=== PATIENT | female | born 1960 | race Caucasian/White ===

== ENCOUNTER 2019-07-01 14:08 | Inpatient (IN) | payer BC, MEDICARE ==
--- NOTE | 2019-07-01 14:50 | RAD ---
XR Chest 1 View History: Central line placement Comparison: None. Findings: Right-sided central venous catheter sits at the inferior SVC in good position. Dense bilate ral opacities throughout the lungs. Endotracheal tube tip at level of clavicles. Enteric tube tip in good position. Heart size mildly enlarged. Age-indeterminate left-sided rib fractures. Old right-sided rib fractures . Impression: 1. Satisfactory position of lines and tubes. 2. Abnormal parenchymal opacities throughout the lungs concerning for multifocal bronchopneumonia. Co ntinued follow-up recommended to evaluate for change.
[2019-07-01 14:55] LABS: Hemoglobin 8.9 g/dL (12.0-16.0); Mean Corpuscular HGB CONC 31.2 g/dL (32.0-36.0); Mean Corpuscular Hemoglobin 29.1 pg (27.0-31.0); Mean Corpuscular Volume 93.3 fL (78.0-98.0); Mean Platelet Volume 10.3 fL (7.4-10.4); Platelet Count 131 thou/uL (130-400); RBC Distribution Width 16.9 % (11.5-14.5); Red Blood Cell (RBC) Count 3.06 mill/uL (4.20-5.40); White Blood Cell (WBC) Count 45.4 thou/uL (4.8-10.8)
[2019-07-01] MEDS ORDERED: Cefepime 2 GM VIAL ONE (15:10)
[2019-07-01] MEDS ORDERED: Pantoprazole 40 MG VIAL ONE (15:10)
[2019-07-01 15:12] LABS: Anisocytosis SLIGHT = 6-15 cells (100X) (0-5/hpf); Band 19 % (5-11); Burr Cells SLIGHT = 2-5 cells (100X) (0-1/hpf); Eosinophils 1 % (0-10); Lymphocytes 4 % (21-51); MDiff Complete? YES; Metamyelocyte 4 % (0-0); Monocytes 2 % (0-10); Myelocyte 4 % (0-0); Neutrophil 66 % (42-75); Nucleated RBC 3 % (0); Ovalocytes SLIGHT = 2-5 cells (100X) (0-1/hpf); Platelet Morphology Comment Appears Adequate; Poikilocytosis SLIGHT = 6-15 cells (100X) (0-5/hpf); Polychromasia MODERATE = 3-4 cells (100X) (0-2/hpf); Reflex for Review?? YES; Schistocytes SLIGHT = 2-5 cells (100X) (0-1/hpf); Tear Drops SLIGHT = 2-5 cells (100X) (0-1/hpf); Vacuoles SLIGHT
[2019-07-01 15:17] LABS: Actual Bicarbonate (HCO3a) 9.6 mEq/L (22-28); Analyzer IN Cardio ER; Base Excess (BEa) -19.2 mEq/L (-2.0 to +3.0); CO2 Tension 33.3 mmHg (35.0-45.0); Calcium, Ionized 1.04 mmol/L (1.12-1.30); Carboxyhemoglobin (COHb) 0.1 gm% (0.0-3.0); O2 Tension (PaO2) 406.9 mmHg (80.0-100.0); Potassium - ABG Lab 4.12 mmol/L (3.70-5.30)
[2019-07-01 15:18] LABS: ALT (SGPT) 185 U/L (8-55); AST (SGOT) 465 U/L (5-34); Alkaline Phosphatase 122 U/L (40-110); BUN (Urea Nitrogen) 43 mg/dL (9.8-20.1); Bilirubin, Total 0.3 mg/dL (0.2-1.2); CK (CPK) 265 U/L (29-168); Calc. Creatinine Clearance 0 mL/min (70-130); Calcium 6.5 mg/dL (7.8-10.44); Estimated GFR-MDRD 29; Globulin 2.5 g/dL (2.4-3.5); Glucose 131 mg/dL (70-105); Potassium 4.4 mmol/L (3.5-5.1); Protein, Total 4.5 g/dL (6.0-8.3); Sodium 150 mmol/L (136-145)
[2019-07-01 15:18] LABS: pH, Arterial 7.08 (7.35-7.45)
[2019-07-01 15:20] LABS: Puncture Site LRA
[2019-07-01 15:21] LABS: ALV-art Gradient 264.475 (0-20)
[2019-07-01 15:22] LABS: Carbon Dioxide Less than 8 mmol/L (22-29); Chloride 128 mmol/L (98-107)
[2019-07-01] MEDS ORDERED: Pantoprazole 80 MG, Admixture Fee 1 EACH in Sodium Chloride 0.9% 100 ML IVPB SCH (15:30)
[2019-07-01 15:40] LABS: CKMB 3.7 ng/mL (0-6.6)
[2019-07-01] MEDS ORDERED: Propofol 1,000 MG/100 ML VIAL IV ONE (15:40)
[2019-07-01 15:50] LABS: Prothrombin Time 38.9 SEC (12.0-14.7)
[2019-07-01 15:51] LABS: PTT 60.1 SEC (22.9-36.1)
[2019-07-01] MEDS ORDERED: HUMAN PROTHROMBIN COMPLX IV SCH (16:15)
[2019-07-01] MEDS ORDERED: ADMIXTURE FEE IV SCH (16:15)
--- NOTE | 2019-07-01 16:23 | CT ---
CT OF THE CHEST, ABDOMEN AND PELVIS WITHOUT IV CONTRAST INDICATION: Dyspnea COMPARISON: None FINDINGS: CHEST: Lungs: There are patchy areas of peripheral airspace consolidation is seen within the right lung apex and left lower lobe suspicious for pneumonia. This is superimposed on areas of peripheral fibrosis and COPD type change. There are peripheral areas of interstitial and airspace opacities seen within t he lingula and right lower lobe which may reflect a component of bronchopneumonia. Pleural space: No effusion. Mediastinum: Mild ectasia of the ascending aorta measuring 4 cm. The patient is intubated with gastri c catheter placement. Axilla: No pathologically enlarged lymph nodes. ABDOMEN: Lung bases: Clear Liver: No focal lesion. Gallbladder: Surgically absent Pancreas: Normal. Adrenal glands: Normal. Spleen: Normal. Kidneys and ureters: Normal. No hydronephrosis. Vasculature: Normal. Lymph nodes:No lymphadenopathy. Free fluid in abdomen:No free fluid is evident. PELVIS: Small and large bowel: There is postsurgical change of right hemicolectomy and ileocolonic anastomosi s in the right upper quadrant. There is fluid distention of the colon. Appendix:Surgically absent Bladder: Decompressed with a Crorea catheter Rectal and perirectal soft tissues:Normal. Reproductive structures: Surgically absent Free fluid in pelvis: No free fluid is evident. Lymphadenopathy pelvis: No lymphadenopathy is evident. Osseous structures: There is reconstructed total hip prosthesis on the right. There are chronic appea ring wedge compression abnormalities of T12 and L1. There is healed deformity involving the proximal sternal body. There is scattered degenerative and osteoarthritic changes. Soft tissues:Normal. IMPRESSION: 1. Findings most suspicious for multifocal pneumonia. 2. Fluid distention of the colon is suspicious for either a diarrheal state or colitis. 3. Chronic findings as above
[2019-07-01] MEDS ORDERED: Norepinephrine 8 MG/0.9% NS 250 ML ONE (16:25)
[2019-07-01] MEDS ORDERED: Ondansetron PF 4 MG/2 ML Vial IVP PRN (16:36)
[2019-07-01] MEDS ORDERED: Acetaminophen 325 MG TAB PER TUBE PRN (16:36)
[2019-07-01] MEDS ORDERED: Vancomycin HCl 1 GM in Sodium Chloride 0.9% 250 ML 250 ML IVPB SCH (17:00)
[2019-07-01] MEDS ORDERED: Norepinephrine 8 MG/0.9% NS 250 ML IVPB SCH (17:00)
[2019-07-01 17:03] LABS: Fibrinogen 274 mg/dL (253-463)
[2019-07-01 17:03] LABS: Hemoglobin 7.7 g/dL (12.0-16.0); Mean Corpuscular HGB CONC 32.3 g/dL (32.0-36.0); Mean Corpuscular Volume 89.8 fL (78.0-98.0); Mean Platelet Volume 7.6 fL (7.4-10.4); Platelet Count 120 thou/uL (130-400); RBC Distribution Width 16.9 % (11.5-14.5); Red Blood Cell (RBC) Count 2.67 mill/uL (4.20-5.40); White Blood Cell (WBC) Count 48.8 thou/uL (4.8-10.8)
[2019-07-01 17:20] LABS: FSP-Qualitative ABNORMAL (Normal); FSP-Semiquantitative >=40 & <80 mcg/mL (Less than 5)
[2019-07-01 17:22] LABS: Anion Gap 15 mmol/L (10-20); BUN (Urea Nitrogen) 44 mg/dL (9.8-20.1); Calc. Creatinine Clearance 0 mL/min (70-130); Calcium 6.2 mg/dL (7.8-10.44); Carbon Dioxide 12 mmol/L (22-29); Estimated GFR-MDRD 28; Glucose 188 mg/dL (70-105); Potassium 3.9 mmol/L (3.5-5.1); Sodium 150 mmol/L (136-145)
[2019-07-01 17:27] LABS: Anisocytosis SLIGHT = 6-15 cells (100X) (0-5/hpf); Band 14 % (5-11); Burr Cells SLIGHT = 2-5 cells (100X) (0-1/hpf); Lymphocytes 6 % (21-51); MDiff Complete? YES; Metamyelocyte 6 % (0-0); Monocytes 2 % (0-10); Myelocyte 4 % (0-0); Neutrophil 68 % (42-75); Nucleated RBC 1 % (0); Ovalocytes SLIGHT = 2-5 cells (100X) (0-1/hpf); Platelet Morphology Comment Appears Decreased; Poikilocytosis SLIGHT = 6-15 cells (100X) (0-5/hpf); Polychromasia MODERATE = 3-4 cells (100X) (0-2/hpf); Schistocytes SLIGHT = 2-5 cells (100X) (0-1/hpf); Troponin I 0.101 ng/mL (< 0.028); Vacuoles SLIGHT
[2019-07-01 17:36] LABS: Chloride 127 mmol/L (98-107)
[2019-07-01] MEDS ORDERED: Sodium Bicarbonate 100 MEQ in Dextrose 5% in Water 1,000 ML IV SCH (17:45)
[2019-07-01] MEDS ORDERED: DISCONTINUE PREVIOUS NARCOTIC PAIN MEDICATIONS AND BENZODIAZEPINES FS SCH (17:49)
[2019-07-01] MEDS ORDERED: Fentanyl BOLUS 250 ML IVPB PRN (17:49)
[2019-07-01] MEDS ORDERED: fentaNYL Citrate/PF 2,000 MCG in Sodium Chloride 0.9% 60 ML IV SCH (17:49)
[2019-07-01] MEDS ORDERED: Propofol BOLUS 1,000 MG/100 ML VIAL IV PRN (17:49)
[2019-07-01] MEDS ORDERED: Aztreonam 1 GM in Sodium Chloride 0.9% 100 ML IVPB SCH (18:00)
--- NOTE | 2019-07-01 18:32 | PDOC.HOSPP ---
- Subjective Encounter Date: 07/01/19 - Objective Vital Signs & Weight: Vital Signs (12 hours) Pulse BP 07/01/19 17:42 102 H 118/79 Result Diagrams: 07/01/19 16:52 07/01/19 16:52 Hosp A/P - Plan H&P dictated Case Discussed with Dr Devonte Renteria in detail and he reviewed labs and clinical data in detail , Pt s/p K centra transfusion given by ED and He Recommended to transfuse 2 units FFP and recomended to continue monitor h/h and transfuse to maintain Hg and also recommended to correct acid base balance and maintain hydrodynamic stability
[2019-07-01] MEDS ORDERED: Sodium Bicarb 50 MEQ/50 ML VIAL ONE (18:38)
[2019-07-01 18:54] LABS: Actual Bicarbonate (HCO3a) 16.9 mEq/L (22-28); Base Excess (BEa) -8.6 mEq/L (-2.0 to +3.0); CO2 Tension 34.6 mmHg (35.0-45.0); Calcium, Ionized 0.92 mmol/L (1.12-1.30); Carboxyhemoglobin (COHb) 0.5 gm% (0.0-3.0); Hemoglobin (Hb) 8.1 g/dL (12.0-16.0); O2 Tension (PaO2) 64.7 mmHg (80.0-100.0); Potassium - ABG Lab 3.55 mmol/L (3.70-5.30); pH, Arterial 7.31 (7.35-7.45)
[2019-07-01] MEDS ORDERED: Phytonadione 10 MG/ML AMP SLOW IVP SCH (19:00)
[2019-07-01] MEDS ORDERED: Sodium Bicarb 50 MEQ/50 ML VIAL IVP SCH (19:00)
[2019-07-01 19:16] LABS: Puncture Site R BRACHIAL
[2019-07-01 19:40] LABS: Hemoglobin 7.8 g/dL (12.0-16.0); Mean Corpuscular HGB CONC 32.6 g/dL (32.0-36.0); Mean Corpuscular Volume 88.7 fL (78.0-98.0); Mean Platelet Volume 9.8 fL (7.4-10.4); Platelet Count 143 thou/uL (130-400); RBC Distribution Width 15.8 % (11.5-14.5); Red Blood Cell (RBC) Count 2.69 mill/uL (4.20-5.40)
[2019-07-01] MEDS: Sodium Bicarbonate 100 MEQ in Dextrose 5% in Water 1,000 ML IV SCH (19:45)
[2019-07-01 19:47] LABS: Fibrinogen 227 mg/dL (253-463)
[2019-07-01 19:48] LABS: INR-International Normal Ratio 2.9; PTT 50.4 SEC (22.9-36.1); Prothrombin Time 29.9 SEC (12.0-14.7)
[2019-07-01 19:48] LABS: INR-International Normal Ratio 2.9; Prothrombin Time 30.1 SEC (12.0-14.7)
[2019-07-01 19:51] LABS: Band 5 % (5-11); Lymphocytes 5 % (21-51); MDiff Complete? YES; Metamyelocyte 2 % (0-0); Neutrophil 88 % (42-75); Platelet Morphology Comment Appears Adequate
[2019-07-01 19:53] LABS: Lactic Acid 3.1 mmol/L (0.5-2.2)
[2019-07-01 19:55] LABS: D-Dimer Test 10.71 *mcg/mL (0.27-0.43)
[2019-07-01 20:03] LABS: ALT (SGPT) 170 U/L (8-55); AST (SGOT) 602 U/L (5-34); Albumin 2.1 g/dL (3.5-5.0); Alkaline Phosphatase 90 U/L (40-110); Anion Gap 15 mmol/L (10-20); BUN (Urea Nitrogen) 45 mg/dL (9.8-20.1); Bilirubin, Total 0.7 mg/dL (0.2-1.2); Calc. Creatinine Clearance 0 mL/min (70-130); Calcium 5.6 mg/dL (7.8-10.44); Carbon Dioxide 17 mmol/L (22-29); Chloride 126 mmol/L (98-107); Estimated GFR-MDRD 26; FSP-Qualitative ABNORMAL (Normal); FSP-Semiquantitative >=40 & <80 mcg/mL (Less than 5); Globulin 2.2 g/dL (2.4-3.5); Glucose 202 mg/dL (70-105); Potassium 3.4 mmol/L (3.5-5.1); Protein, Total 4.3 g/dL (6.0-8.3); Sodium 155 mmol/L (136-145)
[2019-07-01 20:04] LABS: Platelet Count 143 thou/uL (130-400)
[2019-07-01] MEDS: Linezolid 600 MG in Premix Bag 1 BAG IVPB SCH (20:11)
[2019-07-01] MEDS ORDERED: Calcium Chloride 1 GM/10 ML Abboject SYRINGE IVP SCH (21:15)
--- NOTE | 2019-07-01 21:22 | HP ---
PRESENTING COMPLAINT: Status post cardiac arrest, GI bleed. HISTORY OF PRESENT ILLNESS: The patient with a past medical history of Crohn disease on Humira, history of recently diagnosed arrhythmia on Eliquis, hypertension, multiple hip surgery, status post hip replacement, recent cholecystectomy, recently diagnosed respiratory failure on oxygen at home. As per , the patient today had a large bloody bowel movements with clots and then she felt dizzy and lightheaded and was not feeling well and she had collapse and the EMS was called. started [id number] breathing and upon EMS arrival, CPR was started and the patient was approximately as per on CPR for 20 minutes. The patient was intubated and was brought to [facility]. She was found to have anemia with a hemoglobin of 4.2. The patient given 2 units of PRBC. The patient was transferred to [facility] where in the emergency room the patient also had bloody bowel movement as per nursing staff. The patient having bleeding from her central line site area, also through her suction. The patient orally intubated and had dilated pupil. The patient was hypotensive on the scene and given PRBC transfusion. Currently, the patient's blood pressure is 88/59 and temperature 92. The patient's INR is 4.4. ED physician consulted geoint analyst, rate marker, and folder operator for severe acidosis and acute renal failure. The patient being admitted to ICU. Pupils dilated, non reacting to light; however, she has spontaneous movements of her extremity. SYSTEMIC REVIEW: As mentioned above. PAST MEDICAL HISTORY: As mentioned above. PAST SURGICAL HISTORY: 1. History of shoulder surgery, history of recent cholecystectomy on June 22, 2019. 2. Multiple hip surgeries in the past, status post right hip replacement. 3. Right femur surgery. 4. Right hand surgery. SOCIAL HISTORY: The patient has been heavy smoker in the past and quit 1 month ago. Denies alcohol abuse, drug abuse. FAMILY HISTORY: Reviewed and noncontributory. HOME MEDICATIONS: The patient has been on Eliquis and other medications. Her family does not know the exact medications at present. PHYSICAL EXAMINATION: VITAL SIGNS: 88/59, temperature 92, respiration 18, oxygen saturation 94%. GENERAL: The patient orally intubated. HEENT: Pupils dilated, very sluggish reaction to light. Oral mucosa dry. NECK: Supple. No JVD. No lymphadenopathy. CHEST: Decreased air entry bilateral lower lung daly. ABDOMEN: Mildly distended. Bowel sounds audible. EXTREMITIES: Negative edema of feet. LABORATORY DATA: CBC unremarkable except white blood cell 45.4, hemoglobin 8.9, platelet count 131. INR 4.0, PT 38.9, PTT 62.1. ABGs; 7.08, 33, 406. CMP unremarkable except sodium 150, potassium 4.4, chloride 128, creatinine 1.79, BUN 43, glucose 131, lactic acid 9.1, ALT 465, ALT 185, alkaline phosphatase 122. CPK 265. Troponin 0.065. EKG; normal sinus rhythm, T-wave inversion virgin in lateral leads. Chest x-ray; satisfactory position of lines and tubes, abnormal parenchymal opacities throughout the lungs concerning for multifocal bronchopneumonia. Chest, abdomen, and pelvis CT findings suspicious for multifocal pneumonia. Fluid distention of the colon is suspicious for either a diarrheal state or colitis. Chronic findings as above. IMPRESSION: 1. Status post cardiac arrest with CPR approximately 20 minutes at home after the patient had bloody bowel movement, status post intubation. Continue ICU care. Continue vent management per ICU team. 2. Acute hypoxemic respiratory failure, being placed on oxygen recently after cholecystectomy and the patient currently has pneumonia. We will continue broad-spectrum antibiotics. Possible aspiration pneumonia. Follow up blood cultures, sputum culture. 3. Acute gastrointestinal bleed. The patient had large bloody bowel movement this morning at home and also had one bloody bowel movement in the emergency room. The patient's hemoglobin was 4 at [facility] where she was given 2 units of PRBC. GI, Dr. Mcdonald has been consulted. We will continue to monitor H and H q.4 hours hourly. The patient will continue Protonix drip. Nursing staff also noticed blood from central line site and from an ET tube. The patient has a history of Crohn disease, on Humira. Follow up with GI if steroids needs to be started here. 4. Coagulopathy. The patient has been on Eliquis at home. INR 4. The patient currently getting Kcentra In the emergency room also getting FFP and platelet transfusion. Discussed with lead simulation modeling engineer certified hearing instrument dispenser Dr. Devonte Renteria and he reviewed labs and clinical data in detail and recomended to give 2 units FFP and correction of acid base balance and icu monitoring and stabilizations of vitals 5. Shock, possible gastrointestinal related blood loss and possible component of sepsis. We will continue fluid resuscitation and currently started Levophed in the emergency room as blood pressure was 88 systolic. 6. Severe lactic acidosis, most likely secondary to shock and gastrointestinal bleed. Nephrology has been consulted. 7. History of hypertension. We will hold antihypertensive medication at present. 8. Acute kidney injury, most likely secondary to shock and hypotension related. 9. Deranged LFTs, most likely shock liver. We will continue to trend LFTs. 10. Positive troponin, most likely related to CPR related. We will continue to monitor troponins. EKG without any significant changes. 11. Hyponatremia, most likely dehydration related. We will continue fluids after Nephrology evaluation. 12. Prognosis is guarded. Updated the patient's and son, who are present at bedside. Advance directive discussed with and son. The patient is currently full code. Job ID: [id number] [id number]
--- NOTE | 2019-07-01 22:15 | CON ---
DATE OF CONSULTATION: 07/01/2019 SERVICE: Nephrology. REASON FOR CONSULTATION: Acute kidney injury. REQUESTING PHYSICIAN: Dr. Erik Khalil. HISTORY OF PRESENT ILLNESS: A 59-year-old female with recent laparoscopic cholecystectomy, admitted from [facility] for further evaluation, and treatment of PEA arrest. The patient reportedly had enlarged bloody stool, following this she had syncopal episodes, and was unresponsive. When EMS called, arrived at the place, the patient was in PEA arrest, and then started CPR with return of spontaneous circulation after about 20 minutes. The patient was taken to the [place] ER, where the patient was intubated. She also was treated with IV fluid as well as blood transfusion en route to the hospital. The patient was also found to have hypernatremia as well as acute kidney injury and abnormal liver enzymes and coagulopathy. Impression of possible DIC was made and patient received Kcentra in the ER. She also received FFP and plasma platelets. She is still unresponsive, mechanically ventilated via ET tube. PAST MEDICAL HISTORY: Unknown due to the patient's condition, and there is no family member around. PAST SURGICAL HISTORY: Laparoscopic cholecystectomy. FAMILY HISTORY: Unable to perform due to the patient's condition. SOCIAL HISTORY: Unable to perform. ALLERGIES: CEPHALOSPORIN. PRIOR TO HOSPITAL, MEDICATION UNKNOWN. PHYSICAL EXAMINATION: VITAL SIGNS: Current vitals showed pulse 125, respiratory rate 32, SpO2 100% on ventilator, and blood pressure is 130/87. GENERAL: Middle-aged female, in no obvious distress. The patient is unresponsive. HEENT: Normocephalic and atraumatic. ET tube and NG tube noted. Some blood smell is noted on the nostrils as well as around the mouth. NECK: No JVD appreciated. CARDIOVASCULAR: Regular rhythm, but tachycardic. RESPIRATORY: Fair air entry with the ventilator transmitted breath sounds with scattered crackles. The patient is tachypneic. GI: Full, soft, nondistended. Scars of recent laparoscopic cholecystectomy noted. EXTREMITIES: Grossly normal looking, atraumatic with no obvious edema. UROGENITAL: Correa catheter is in place with no urine. CLINICAL EDUCATION ASSISTANT: The patient is somnolent. LABORATORY DATA: CBC on presentation showed a WBC count of 45.4, hemoglobin of 8.9, and platelet of 131. DIC panel done on presentation showed PT 38.9, INR 4.0, PTT 60.1, fibrinogen 274 with fibrin degraded product abnormally high, and D-dimer 13.5. Arterial blood gas done on presentation showed pH of 7.08, pCO2 of 33.3, and PO2 of 406. CMP on presentation showed sodium 150, potassium 4.4, chloride 126, CO2 less than 8, BUN 43, creatinine 1.79, glucose 133, calcium 6.5, total bilirubin 0.3, AST 465, ALT 185, and alkaline phosphatase 122. Total bilirubin 4.5, albumin 2.0, globulin 2.5. CK-MB showed troponin 0.065 and CK-MB 3.7. DIAGNOSTIC STUDIES: CT scan of the abdomen and pelvis without IV contrast showed findings suggestive of multifocal pneumonia. Fluid distention of the colon is suspicious for either a diarrhea state or colitis. ASSESSMENT: 1. Acute kidney injury. 2. Shock due to diarrhea illness as well as acute gastrointestinal bleeding/hemorrhagic shock. 3. Hypernatremia. 4. Hyperchloremic acidosis. 5. Lactic acidosis. 6. Acute anemia. 7. Acute decrease in hemoglobin. 8. Presumed DIC. 9. Diarrhea illness. 10. Severe metabolic acidosis. 11. Hypocalcemia. PLAN: 1. Fluid resuscitation with IV fluid and blood products to continue. 2. We will start the patient on bicarb infusion with only 100 mEq of sodium bicarbonate to 1 L of D5 to provide additional free water flushes given hypernatremia. 3. We will type and crossmatch further 4 units of packed red blood cells. 4. We will monitor hemoglobin and hematocrit. 5. We will monitor urine output. 6. Optimization of hemodynamics is recommended. 7. Further treatment as per GI and real estate specialist. We will recheck renal function and electrolytes as well as liver function test in the morning. Job ID: [id number]
[2019-07-01] MEDS: Meropenem 500 MG in Sodium Chloride 0.9% 100 ML IVPB SCH (22:42)
[2019-07-01] MEDS: Hydrocortisone Sod Succ/PF 100 mg/2 ml Vial IVP SCH (22:46)
[2019-07-01] MEDS: Lorazepam 2 MG/ML VIAL SLOW IVP PRN (22:47)
[2019-07-01 23:37] LABS: Anion Gap 14 mmol/L (10-20); BUN (Urea Nitrogen) 44 mg/dL (9.8-20.1); Calc. Creatinine Clearance 31 mL/min (70-130); Calcium 6.4 mg/dL (7.8-10.44); Carbon Dioxide 16 mmol/L (22-29); Estimated GFR-MDRD 23; Glucose 141 mg/dL (70-105); Sodium 153 mmol/L (136-145)
[2019-07-01 23:43] LABS: Chloride 126 mmol/L (98-107)
[2019-07-01 23:44] LABS: Troponin I 0.203 ng/mL (< 0.028)
[2019-07-02] MEDS ORDERED: Calcium Gluconate 100 MG/ML 10 ML IVPB SCH (00:45)
[2019-07-02] MEDS ORDERED: Potassium Chloride 40 MEQ in Premix Bag 1 BAG IVPB SCH ×2 (00:45→05:30)
[2019-07-02 00:47] LABS: Actual Bicarbonate (HCO3a) 16.6 mEq/L (22-28); Base Excess (BEa) -6.4 mEq/L (-2.0 to +3.0); Calcium, Ionized 0.93 mmol/L (1.12-1.30); Hemoglobin (Hb) 7.8 g/dL (12.0-16.0); O2 Tension (PaO2) 98.4 mmHg (80.0-100.0); Potassium - ABG Lab 2.86 mmol/L (3.70-5.30); pH, Arterial 7.45 (7.35-7.45)
[2019-07-02 00:48] LABS: CO2 Tension 24.4 mmHg (35.0-45.0)
[2019-07-02 00:51] LABS: Puncture Site R BRACHIAL
[2019-07-02] MEDS ORDERED: Calcium Gluconate 4.6 MEQ in Sodium Chloride 0.9% 100 ML IVPB SCH (01:00)
[2019-07-02 01:08] LABS: Band 8 % (5-11); Hemoglobin 7.7 g/dL (12.0-16.0); Lymphocytes 3 % (21-51); MDiff Complete? YES; Mean Corpuscular HGB CONC 33.6 g/dL (32.0-36.0); Mean Corpuscular Hemoglobin 29.4 pg (27.0-31.0); Mean Corpuscular Volume 87.4 fL (78.0-98.0); Mean Platelet Volume 10.8 fL (7.4-10.4); Metamyelocyte 3 % (0-0); Monocytes 2 % (0-10); Neutrophil 84 % (42-75); Nucleated RBC 1 % (0); Platelet Count 89 thou/uL (130-400); Platelet Morphology Comment Appears Decreased; RBC Distribution Width 15.1 % (11.5-14.5); Red Blood Cell (RBC) Count 2.63 mill/uL (4.20-5.40); White Blood Cell (WBC) Count 35.5 thou/uL (4.8-10.8)
[2019-07-02] MEDS: Morphine 2 MG/ML SYRINGE SLOW IVP PRN (01:13)
[2019-07-02] MEDS: Lorazepam 2 MG/ML VIAL SLOW IVP PRN (03:08)
[2019-07-02] MEDS: Propofol 1,000 MG/100 ML VIAL IV PRN ×3 (03:22→19:05)
[2019-07-02 04:34] LABS: INR-International Normal Ratio 2.2; PTT 43.2 SEC (22.9-36.1); Prothrombin Time 23.9 SEC (12.0-14.7)
[2019-07-02 04:58] LABS: Anion Gap 13 mmol/L (10-20); BUN (Urea Nitrogen) 46 mg/dL (9.8-20.1); Band 7 % (5-11); Calc. Creatinine Clearance 27 mL/min (70-130); Calcium 6.1 mg/dL (7.8-10.44); Carbon Dioxide 17 mmol/L (22-29); Estimated GFR-MDRD 19; Glucose 126 mg/dL (70-105); Hemoglobin 6.7 g/dL (12.0-16.0); Lymphocytes 4 % (21-51); MDiff Complete? YES; Mean Corpuscular HGB CONC 34.2 g/dL (32.0-36.0); Mean Corpuscular Hemoglobin 29.6 pg (27.0-31.0); Mean Corpuscular Volume 86.7 fL (78.0-98.0); Mean Platelet Volume 10.6 fL (7.4-10.4); Monocytes 5 % (0-10); Neutrophil 83 % (42-75); Nucleated RBC 1 % (0); Platelet Count 73 thou/uL (130-400); Platelet Morphology Comment Appears Decreased; Potassium 3.2 mmol/L (3.5-5.1); RBC Distribution Width 15.1 % (11.5-14.5); RBC Morphology Normal; Reactive Lymphocytes 1 % (0-10); Red Blood Cell (RBC) Count 2.27 mill/uL (4.20-5.40); Sodium 153 mmol/L (136-145); White Blood Cell (WBC) Count 31.2 thou/uL (4.8-10.8)
[2019-07-02 05:07] LABS: Chloride 126 mmol/L (98-107)
[2019-07-02] MEDS: Meropenem 500 MG in Sodium Chloride 0.9% 100 ML IVPB SCH ×3 (05:20→22:16)
[2019-07-02] MEDS: Sodium Bicarbonate 100 MEQ in Dextrose 5% in Water 1,000 ML IV SCH (05:20)
[2019-07-02] MEDS: Hydrocortisone Sod Succ/PF 100 mg/2 ml Vial IVP SCH ×4 (05:20→23:33)
[2019-07-02 05:24] LABS: ALT (SGPT) 141 U/L (8-55); AST (SGOT) 509 U/L (5-34); Albumin 2.2 g/dL (3.5-5.0); Alkaline Phosphatase 71 U/L (40-110); Anion Gap 13 mmol/L (10-20); BUN (Urea Nitrogen) 46 mg/dL (9.8-20.1); Calc. Creatinine Clearance 26 mL/min (70-130); Calcium 6.2 mg/dL (7.8-10.44); Carbon Dioxide 17 mmol/L (22-29); Estimated GFR-MDRD 19; Globulin 2.2 g/dL (2.4-3.5); Glucose 127 mg/dL (70-105); Potassium 3.2 mmol/L (3.5-5.1); Protein, Total 4.4 g/dL (6.0-8.3); Sodium 154 mmol/L (136-145)
[2019-07-02 05:27] LABS: Chloride 127 mmol/L (98-107)
[2019-07-02 07:38] LABS: Actual Bicarbonate (HCO3a) 14.5 mEq/L (22-28); Base Excess (BEa) -7.3 mEq/L (-2.0 to +3.0); Calcium, Ionized 0.94 mmol/L (1.12-1.30); Carboxyhemoglobin (COHb) 2.2 gm% (0.0-3.0); Hemoglobin (Hb) 7.9 g/dL (12.0-16.0); O2 Tension (PaO2) 74.5 mmHg (80.0-100.0); pH, Arterial 7.51 (7.35-7.45)
[2019-07-02 07:56] LABS: CO2 Tension 18.4 mmHg (35.0-45.0); Puncture Site RRA
--- NOTE | 2019-07-02 08:37 | RAD ---
XR Chest 1 View Portable History: Ventilated patient Comparison: Radiograph prior day Findings: Endotracheal tube tip at the level of clavicles. Subclavian central venous catheter is chris lar. Mild atelectatic changes in the lung bases. Old rib fractures. Consolidation/mass in the lingula. Impression: Similar examination the chest. Consolidation/mass in the lingula.
[2019-07-02] MEDS ORDERED: Dextrose 5% in Water 1,000 ML IV SCH (08:45)
--- NOTE | 2019-07-02 09:12 | PRG ---
DATE OF SERVICE: 07/02/2019 SUBJECTIVE: A 59-year-old female. OBJECTIVE: VITAL SIGNS: This morning, she is breathing 46 times a minute, pulse 136, blood pressure 151/96, sats are 99%, tachypneic, tachycardic, temperature 101.3. NEUROLOGIC: She is unresponsive. HEENT: Pupils are dilated. CHEST: Decreased breath sounds without any wheezing. Minimal crackles. CARDIAC: Sinus tach. ABDOMEN: Soft. LABORATORY STUDIES: White count 31,000. H and H 6 and 19, platelet count is 73. INR is 2.2. PO2 is 74, pCO2 is 18, pH 7.51, on 40%. Creatinine is 2.56, BUN is 46. Sodium is 126, bicarb is 17. Chest x-ray shows minimal infiltrates. ASSESSMENT: 1. Metabolic encephalopathy. Rule out intracerebral hemorrhage. 2. Coagulopathy. DIC. 3. History of atrial fibrillation. 4. Renal failure, recent gallbladder surgery. 5. Chronic obstructive pulmonary disease. 6. Pneumonia. PLAN: CT of the head is being done otherwise, and stress dose steroids, broad-spectrum antibiotics, supportive care, Protonix. Prognosis remains grave. One-half hour of critical time. Family is present at the bedside. Job ID: [id number]
[2019-07-02] MEDS ORDERED: Norepinephrine 8 MG in Dextrose 5% in Water 242 ML IVPB SCH (09:15)
[2019-07-02 09:24] LABS: Phosphorus 2.5 mg/dL (2.3-4.7)
[2019-07-02 09:31] LABS: Magnesium 0.9 mg/dL (1.6-2.6)
--- NOTE | 2019-07-02 09:35 | CT ---
Exam: Head CT without contrast HISTORY: Unresponsive patient. Evaluate for hemorrhage. COMPARISON: none FINDINGS: Hemorrhage: No intraparenchymal hemorrhage or extra-axial hematoma. Brain parenchyma: Subtle areas of hypoattenuation in the right frontal lobe which may represent volum e averaging from sulci. However, a right frontal lobe insult cannot be entirely excluded with resultant diminished hernandez-white matter differentiation. Further evaluation with brain MRI is recommen ded. With regard to left cerebrum, cortical hernandez-white matter differentiation is preserved.There are hypodensities in the posterior fossa involving both cerebellar hemispheres, right greater than le ft. Ventricular system: Ventricles and sulci are patent and symmetric. Calvarium: Intact. Sinuses and mastoid air cells: There is paranasal sinus mucosal thickening. IMPRESSION: Multiple hypodensities in the posterior fossa and right frontal lobe. Distribution there is a possibl e embolic phenomenon. Further evaluation with pre and postcontrast brain MRI recommended. CODE T
[2019-07-02 09:43] LABS: Anion Gap 13 mmol/L (10-20); BUN (Urea Nitrogen) 47 mg/dL (9.8-20.1); Calc. Creatinine Clearance 24 mL/min (70-130); Carbon Dioxide 17 mmol/L (22-29); Estimated GFR-MDRD 17; Glucose 128 mg/dL (70-105); Potassium 3.8 mmol/L (3.5-5.1); Sodium 153 mmol/L (136-145)
[2019-07-02 09:46] LABS: Calcium 5.9 mg/dL (7.8-10.44); Chloride 127 mmol/L (98-107)
[2019-07-02] MEDS: DEXTROSE IVPB SCH ×2 (10:04→19:44)
[2019-07-02] MEDS: WATER IVPB SCH ×2 (10:04→19:44)
[2019-07-02] MEDS: ADMIXTURE FEE IVPB SCH ×2 (10:04→19:44)
[2019-07-02] MEDS: PANTOPRAZOLE IVPB SCH ×2 (10:04→19:44)
[2019-07-02] MEDS: Linezolid 600 MG in Premix Bag 1 BAG IVPB SCH ×2 (10:06→20:00)
[2019-07-02] MEDS ORDERED: Calcium Chloride 13.6 MEQ in Sodium Chloride 0.9% 100 ML IVPB SCH (10:30)
[2019-07-02] MEDS ORDERED: Magnesium Sulfate 3 GM in Sodium Chloride 0.9% 100 ML IVPB SCH (10:30)
[2019-07-02] MEDS ORDERED: Calcium Gluconate 9.2 MEQ in Sodium Chloride 0.9% 100 ML IVPB SCH (10:30)
[2019-07-02 10:35] LABS: INR-International Normal Ratio 1.8; PTT 38.9 SEC (22.9-36.1); Prothrombin Time 21.2 SEC (12.0-14.7)
[2019-07-02 10:38] LABS: Hemoglobin 8.8 g/dL (12.0-16.0); Mean Corpuscular HGB CONC 34.3 g/dL (32.0-36.0); Mean Corpuscular Hemoglobin 29.3 pg (27.0-31.0); Mean Corpuscular Volume 85.3 fL (78.0-98.0); Mean Platelet Volume 11.4 fL (7.4-10.4); Platelet Count 67 thou/uL (130-400); RBC Distribution Width 14.3 % (11.5-14.5); Red Blood Cell (RBC) Count 3.01 mill/uL (4.20-5.40); White Blood Cell (WBC) Count 26.4 thou/uL (4.8-10.8)
[2019-07-02] MEDS ORDERED: Phytonadione 10 MG/ML AMP SLOW IVP SCH (10:45)
[2019-07-02 10:48] LABS: Anion Gap 13 mmol/L (10-20); BUN (Urea Nitrogen) 45 mg/dL (9.8-20.1); Calc. Creatinine Clearance 23 mL/min (70-130); Carbon Dioxide 18 mmol/L (22-29); Chloride 124 mmol/L (98-107); Estimated GFR-MDRD 16; Glucose 123 mg/dL (70-105); Potassium 3.6 mmol/L (3.5-5.1); Sodium 151 mmol/L (136-145)
[2019-07-02 10:55] LABS: Calcium 5.8 mg/dL (7.8-10.44)
--- NOTE | 2019-07-02 11:12 | CON ---
DATE OF CONSULTATION: 07/01/2019 REASON FOR CONSULTATION: GI hemorrhage. CONSULTING PHYSICIAN: Dr. Abdulaziz Maxwell. History comes from discussion with Dr. Maxwell and the patient's family, here at the bedside. HISTORY OF PRESENT ILLNESS: Ms. Weir was transferred to this hospital from an outside facility where she presented in cardiac arrest with massive GI hemorrhage. On arrival here, she had a blood pressure of 88/59, pulse of 96. She was intubated and sedated. The history is that the patient has been in an outside hospital in [place], [place] in the past couple of weeks possibly as far back as new year. Her was ill as well. He is not sure what the diagnosis was, but ultimately she was discharged home. She had her gallbladder removed during that hospitalization . When she went home, she was still on oxygen, but he is unclear why, possibly she had some pneumonia. Additionally, she developed atrial fibrillation in the hospital and was discharged home on Eliquis. She was taking that up until today. Apparently today, she had a presyncopal episode and had an accident in the chair with blood in the stool and also hematuria. The got her to the bathtub to get cleaned up then she became unresponsive. Apparently, EMS responded. She was under CPR for 20 minutes. She was not shocked and she was brought to [place] where she was intubated and apparently given 2 units of blood transfusion on the way to this facility. At the outside hospital, her white count 27,000, hemoglobin was 4.1, platelets were normal. I did not see an INR on the records. She was acidotic with low bicarb and a low calcium. Here on arrival at 1433, [place] [address], hemoglobin of 8.9, platelet count 131. It was repeated at 1652; [place] was [address], hemoglobin 7.7, platelet count was 120. She had an INR for 4, PTT of 60 at 1531. Blood gas at 1516 showed a pH of 7.08, CO2 of 33, pO2 of 406. Initial sodium was 150, potassium 4.4, chloride 128, bicarb less than 8, BUN 43, creatinine 1.73. AST and ALT were 465 and 185. Alkaline phosphatase 121. CK was 265, troponin 0.065, protein 4.5, albumin 2. At 1652, labs were repeated and sodium was 150, potassium is 3.9, bicarb is 12, chloride is pending, BUN 44, creatinine 1.8. Other pertinent ER factors, chest x-ray shows some rib fractures some old and some new and some findings concerning for bronchopneumonia per the radiologist. PAST MEDICAL HISTORY: Crohn disease, she is on Humira for several years now. Prior to that, she had multiple transfusion, was on steroids quite a bit and had multiple hemorrhages in the past and her estimated she has received about 60 units of blood in her lifetime. 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 [facility] she was diagnosed with atrial fibrillation, the family is not clear on what the final dx was at that hospital. PAST SURGICAL HISTORY: Shoulder surgeries, hip surgery for infection in the past. She has osteoporosis. ALLERGIES: CEPHALOSPORINS. MEDICATIONS: Nurse is in progress of getting of some medication list from the family. PHYSICAL EXAMINATION: GENERAL: The patient is intubated. She is in the shock room. VITAL SIGNS: Recently, pulse 95, blood pressure 140/80, temp 90. HEENT: Conjunctivae were pretty pink. Sclerae are clear. She has an OG tube and ET tube in place. She has a right sublavian line with hematoma there. Blood is in the et tube. LUNGS: Fair breath sounds with some crackles. ABDOMEN: Soft and nontender. No rebound or guarding. Recal - melena per staff in er. EXTREMITIES: No clubbing, cyanosis, or edema. There is some mottling of the skin in the lower extremities. Pulses are intact. She does not withdrawal to painful stimuli. She does have equal and round reactive pupils to light, but does not move spontaneously or with painful stimuli either of the four extremities. ASSESSMENT: 1. Acute GI hemorrhage with seemingly hemorrhagic shock and cardiac arrest. 2. Cardiac arrest with concern for end-organ damage with signs of metabolic acidosis, early rhabdomyolysis, shock liver, and acute renal injury. I suspect she has had some brain injury as well, the extent of that is unknown. She does have reactive pupils. 3. GI hemorrhage, does not appear to have ongoing hemorrhage at this time. She has received 2 units of blood at the outside facility for hemoglobin of 4 and is going to receive another here. Her last 2 hemoglobins here have been 8.9 and 7.7. Of more concern is that she is coagulopathic on Eliquis or has DIC. She is receiving Kcentra, unit FFP and some platelets. On rectal exam, there is no overt blood, although the nurses note they cleaned up a large maroon stool when she arrived here. She has been started on a Protonix drip as well. She has been started on vancomycin, aztreonam, and Protonix drip and she is going to go to the ICU. RECOMMENDATIONS: From a GI standpoint, I think reversal of anticoagulation / dic is paramount importance which has begun. As far as critical care management, body cooling after arrest , I would defer that to the ICU staff. If she shows ongoing signs of bleeding, we will intervene endoscopically first, however, would like to try to get her resuscitated and her coagulopathy reversed. If that does occur and she stops bleeding, we will hold off and treat her empirically with PPIs and observe and see how she proceeds over time. I have discussed this with the patient's family who is at the bedside and will visit back with her in the ICU and the ICU team as well. She is moving there presently. Job ID: [id number]
[2019-07-02 11:15] LABS: Anisocytosis SLIGHT = 6-15 cells (100X) (0-5/hpf); Band 7 % (5-11); Lymphocytes 7 % (21-51); MDiff Complete? YES; Monocytes 6 % (0-10); Neutrophil 78 % (42-75); Platelet Morphology Comment Appears Decreased; Reactive Lymphocytes 2 % (0-10)
[2019-07-02] MEDS ORDERED: Rocuronium Bromide 50 MG/5 ML VIAL ONE ×2 (11:26→11:27)
[2019-07-02] MEDS ORDERED: EPINEPHrine 1 MG/10 ML Abboject SYRINGE ONE ×2 (11:33→11:44)
[2019-07-02] MEDS ORDERED: EPINEPHrine 1 MG/ML AMP ONE (11:34)
[2019-07-02] MEDS ORDERED: Rocuronium Bromide 10 MG/ML (10ML VIAL) ONE (11:44)
[2019-07-02] MEDS ORDERED: PROPOFOL 200 MG/20 ML VIAL ONE (11:44)
--- NOTE | 2019-07-02 12:06 | PRG ---
DATE OF SERVICE: 07/02/2019 SUBJECTIVE: The patient is seen at bedside. Family, , and sister also present in the room. The patient is orally intubated and tachypneic. OBJECTIVE: VITAL SIGNS: Blood pressure 150/104, pulse 121, respiratory rate 44, and oxygen saturation 100%. HEENT: Conjunctivae normal. Oral mucosa dry. CHEST: Bilateral scattered crepitations on both chests. HEART: Heart sound tachycardic. ABDOMEN: Mildly distended. Bowel sounds audible. LABORATORY DATA: CBC unremarkable except white blood cells of 26.4, hemoglobin of 8.8, and platelets of 78. BMP is unremarkable except sodium of 151, chloride of 124, potassium of 3.6, creatinine of 2.95, glucose of 123, and calcium of 5.8. AST of 509, ALT of 141, and alkaline phosphatase of 147. Troponin 0.203. INR of 1.8. DIAGNOSTIC DATA: Chest x-ray; endotracheal tube tip at the level of the clavicle, subclavian central venous catheter is similar, mild atelectatic changes in the lung bases, old rib fractures, consolidation, mass in the lingula. Brain CT; multiple hypodensities in the posterior fossa and right frontal lobe distribution. There is a possible embolic phenomena. IMPRESSION: 1. Status post cardiac arrest with CPR approximately 20 minutes at home after the patient had bloody bowel movements, status post intubation on the field and transferred to ICU. The patient has bilateral multiple hypodensities in the posterior fossa and right frontal lobe. Continue ICU monitoring. 2. Acute hypoxemic respiratory failure. Continue vent management as per Dr. Hampton. Continue antibiotics for possible aspiration pneumonia. Follow up blood cultures. 3. Acute gastrointestinal bleed with possible component of disseminated intravascular coagulation. The patient has been having bleeding from central line site and ETT tube site. The patient is being on Eliquis at home. INR on admission was 4 with increased fibrin degradation products and D-dimer. The patient is status post Kcentra given in the emergency room and FFP and platelets. Currently, INR 1.8. Multiple hypodensities in the bilateral occipital lobes, possible component of DIC. We will continue supportive care. 4. Positive troponins, possible related to cardiac resuscitation, CPR. We will continue tele monitoring. 5. Multiple organ failure with acute kidney injury and deranged LFTs with acidosis and electrolyte abnormality. We will continue to monitor. Nephrology on board. 6. Hypernatremia, slowly improving. 7. Acute anemia, most likely related to blood loss, GI related, on PPI. GI on board. The patient is status post PRBC transfusion. We will continue monitor H and H. Discussed the case with Dr. Hampton, he will talk with the family. Overall, prognosis is poor. Discussed in detail with the who is present at bedside and the sister who is present at bedside. They are aware of the patient's critical condition, advanced directive discussed once again. would like to discuss with the family about code status. He is aware if the patient codes again, the prognosis will get more worse. Job ID: [id number]
--- NOTE | 2019-07-02 13:42 | PRG ---
DATE OF SERVICE: 07/02/2019 SERVICE: Nephrology. SUBJECTIVE: This is a 59-year-old female, who was admitted after bloody stool associated with syncope and PEA arrest, status post CPR with return of spontaneous circulation. Nephrology is seeing the patient for acute kidney injury. The patient is still intubated and mechanically ventilated. She however continued to have bloody stool as well as bleeding from central line sites despite multiple transfusions with FFP as well as platelets. Overnight, the patient received further 4 units of packed red blood cells. OBJECTIVE: VITAL SIGNS: Temperature 101.3, pulse 136, respiratory rate 27, SpO2 of 100% on FiO2 of 140%, blood pressure is 140/86. GENERAL: Unresponsive female, who is sedated. HEENT: Normocephalic, atraumatic. ET tube is in place. Blocks may be noticed on the nostrils. NECK: No JVD appreciated. CARDIOVASCULAR: Regular rhythm, but tachycardic. CHEST/RESPIRATORY: Ventilator, transmitted breath sounds heard in all lung zones. No rhonchi were appreciated. Right upper chest bleeding at the site of central line placement. GI: Full, soft with hypoactive normal bowel sounds. EXTREMITIES: Mild bilateral hand fullness. Otherwise, no obvious edema of the extremities noted. 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 UROGENITAL: Correa catheter is in place, draining no urine. DIAGNOSTIC DATA: LABORATORY RESULTS: CBC showed WBC count of 31.2, hemoglobin of 6.7, platelets of 73. Coagulation panel showed PT 23.9, PTT 43.2, INR 2.2. Arterial blood gas showed pH of 7.5, pCO2 of 18.4, pO2 of 74.5, ionized calcium of 0.94. BMP showed sodium 154, potassium 3.2, chloride 127, CO2 of 17, BUN 46, creatinine 2.57, glucose 127, calcium 6.2, total bilirubin 1.0, AST 509, ALT 141, alkaline phosphatase 71, total protein 4.4, albumin 2.2, globulin 2.2. IMAGING STUDIES: Chest x-ray showed atelectatic changes in both lung daly as well as old rib fracture and consolidation and mass in the lingula. CT scan of the brain showed multiple hypodensities in the posterior fossa as well as right frontal lobe. Suggestive of possible embolic phenomena. Further evaluation with pre and post contrast brain MRI was recommended. ASSESSMENT: 1. Acute kidney injury. The patient is anuric. This is most likely due to shock as well as PEA arrest. The patient currently has features of DIC. 2. PEA arrest. 3. Presumed septic shock. 4. Acute GI bleeding. 5. Metabolic acidosis. 6. Shock liver. 7. Multiple hypodensities in the brain suggestive of embolic phenomena either septic emboli or CVA. The patient was recently diagnosed with atrial fibrillation and was to be started on anticoagulation after 3 weeks anticoagulation. 8. Presumed disseminated intravascular coagulation. 9. Severe pancytopenia. 10. Hypocalcemia. 11. Hypomagnesemia. 12. Hypokalemia. 13. Metabolic acidosis. PLAN: 1. We will continue resuscitation with IV fluid as well as blood products. 2. We will replete electrolytes as needed especially potassium, calcium, and magnesium. 3. We will start the patient on D5 to provide free water since the patient has hypernatremia. 4. Broad-spectrum antimicrobial as per primary attending. 5. Further treatment to follow depending on hospital course. 6. The patient is critically ill with guarded prognosis. New finding of multiple hypodensities in the brain. 7. . We will monitor electrolytes regularly and correct as needed. There is no indication for hemodialysis at this time, but this patient is anuric. Blood product transfusion as well as treatment of DIC as per Hematology/Oncology. Job ID: [id number]
[2019-07-02 14:20] LABS: Hemoglobin 8.7 g/dL (12.0-16.0); Mean Corpuscular HGB CONC 33.2 g/dL (32.0-36.0); Mean Corpuscular Hemoglobin 28.7 pg (27.0-31.0); Mean Corpuscular Volume 86.2 fL (78.0-98.0); Mean Platelet Volume 11.7 fL (7.4-10.4); Platelet Count 64 thou/uL (130-400); RBC Distribution Width 14.7 % (11.5-14.5); Red Blood Cell (RBC) Count 3.03 mill/uL (4.20-5.40); White Blood Cell (WBC) Count 28.3 thou/uL (4.8-10.8)
[2019-07-02 14:24] LABS: INR-International Normal Ratio 1.7; PTT 36.8 SEC (22.9-36.1)
[2019-07-02 14:39] LABS: Anisocytosis SLIGHT = 6-15 cells (100X) (0-5/hpf); Band 14 % (5-11); Basophilic Stippling SLIGHT = 1-2 cells (100X) (None Seen); Lymphocytes 3 % (21-51); MDiff Complete? YES; Monocytes 2 % (0-10); Myelocyte 1 % (0-0); Neutrophil 79 % (42-75); Nucleated RBC 2 % (0); Ovalocytes SLIGHT = 2-5 cells (100X) (0-1/hpf); Platelet Morphology Comment Appears Decreased; Polychromasia MODERATE = 3-4 cells (100X) (0-2/hpf); Tear Drops SLIGHT = 2-5 cells (100X) (0-1/hpf)
[2019-07-02 17:08] LABS: Anion Gap 13 mmol/L (10-20); BUN (Urea Nitrogen) 47 mg/dL (9.8-20.1); Calc. Creatinine Clearance 21 mL/min (70-130); Calcium 6.1 mg/dL (7.8-10.44); Carbon Dioxide 16 mmol/L (22-29); Chloride 120 mmol/L (98-107); Estimated GFR-MDRD 14; Glucose 117 mg/dL (70-105); Potassium 3.4 mmol/L (3.5-5.1); Sodium 146 mmol/L (136-145)
--- NOTE | 2019-07-02 18:44 | OP ---
DATE OF PROCEDURE: 07/02/2019 PROCEDURE PERFORMED: Esophagogastroduodenoscopy with control of hemorrhage. PREPROCEDURE DIAGNOSES: 1. Disseminated intravascular coagulation. 2. Sepsis. 3. Cardiac arrest, status post cardiopulmonary resuscitation. 4. Improvement of coagulation with fresh frozen plasma and blood products. 5. Stabilization of hemoglobin overnight. 6. CAT scan recently showed what appears to be possible strokes or embolic phenomenon in the brain. PREPROCEDURE LABORATORY DATA: Hemoglobin 6.7. She had been given transfusion to get her hemoglobin up to 8.8 before the procedure. White count 26,000, platelet count 78,000. INR 1.8. POSTPROCEDURE DIAGNOSES: 1. Small 5 mm white based ulcer with visible vessel in the base with active oozing and clot around the pylorus and duodenum. This was treated with injection of 1:10,000 epinephrine x4, 10-Georgian heater probe cautery and two hemoclips with cessation of all bleeding. 2. The esophagus was normal. 3. The stomach was otherwise normal with no evidence of ulcerations, erosions or bleeding sites. 4. Duodenum, the 3rd portion was normal with clear bile coming from the biliary tree. RECOMMENDATIONS: 1. Continue IV Protonix drip. 2. Continue to monitor improved coagulation. Try to keep INR less than 2. 3. Transfuse as needed. We would monitor H and H q.6. 4. Depending on patient's progress, if she improves over time and becomes more stable, it may be reasonable to consider a CAT scan of the abdomen and pelvis to evaluate for possible infectious source with concern for embolic phenomena in the brain. At this point in time, she is not a surgical candidate, therefore, I see no indication to proceed for emergent CAT scan of the abdomen and pelvis at this time. ANESTHESIA: General endotracheal anesthesia. PROCEDURE IN DETAIL: The procedure was performed at the bedside with assistance of Anesthesia for sedation. Once she was comfortably sedated and a bite block was placed inside the orifice, the endoscope was advanced to the esophagus, stomach and second and third portions of the duodenum . The esophagus was normal. There was an OG-tube in place. It was removed. The stomach was entered. There was some old blood but no active bleeding identified or clot. The stomach was insufflated and forward and retroflexed view showed no evidence of lesions at incisura, or proximal stomach. There were no varices. At the pyloric channel, there was an area of scant blood there and near the duodenum, there was a large clot. This was irrigated and suctioned away. Once this was moved away, the rest of the duodenum was evaluated. The bulb appeared pretty normal with yellow bile come from the ampulla and a normal duodenum to the third portion. I brought back the scope to re-evaluate the duodenal bulb. There was blood emanating and coming down the duodenal wall. We brought the scope back up in the pyloric channel and found an ulcer about 5 mm in size in the anterior wall of the pyloric channel with a visible vessel that was oozing. It was not pulsatile, but this is definitely the site of bleeding as the blood was pooling in the duodenum and clotting. This was injected with 1:10,000 epinephrine. It still was actively bleeding site, so it was cauterized with 10-Georgian heater probe and then the ulcer was closed on itself with 2 hemostatic clips. No further bleeding was ensued. The duodenal bulb and duodenum were again evaluated with only clear bile noted. The pyloric channel was again evaluated closely as was the proximal duodenum with no other lesions seen. The stomach was then re-evaluated in forward and retroflexed views with no other lesions seen. The scope was then removed. The esophagus and GE junction appeared normal. There were no evidence of varices or Elizabeth-Padgett tears. The OG tube was placed back into the stomach and confirmation of placement was not done with endoscopy. The scope was removed. The patient tolerated the procedure well. The patient's family was in the ICU waiting room for the results. I talked to them before the procedure as well to get informed consent. Job ID: [id number]
[2019-07-02] MEDS: Sodium Bicarbonate 50 MEQ in Dextrose 5% in Water 1,000 ML IV SCH (19:59)
--- NOTE | 2019-07-02 22:11 | CON ---
DATE OF CONSULTATION: 07/01/2019 REASON FOR CONSULTATION: Massive GI bleed with coagulopathy. HISTORY OF PRESENT ILLNESS: The patient is a 59-year-old woman who had undergone a recent cholecystectomy, and was at home, recovering, when her found her with a large bloody bowel movement with clots, and lightheaded, followed by collapse , and loss of consciousness. He began individual resuscitation until EMS arrived and CPR was started and continued for approximately 20 minutes until intubation at the [facility]. She was found to have a hemoglobin of 4.2 and was given 2 units of packed red blood cells and transferred emergently to the [facility] ICU. When evaluated in the emergency room, she was unresponsive with poorly responsive pupils. She was intubated. She was found to be hypotensive and RBC transfusion was initiated with the administration of pressors as well. Coagulation studies done at that time included an INR of 4.4. Electrolytes and lactic levels also showed a severe metabolic acidosis and acute renal failure. She was admitted to the Intensive Care Unit and was intubated and unresponsive. She has received 3 units of FFP, platelets, 4 units of packed RBCs with stabilization of hemoglobin, and Kcentra. She is off pressors and hemodynamically stable. The INR has improved with the above interventions to 1.8 and platelet count 64,000. The calcium, however, is less than 6. Just prior to my consultation, the patient underwent upper gastrointestinal endoscopy and was found to have an actively bleeding gastric ulcer which was treated endoscopically. I am asked to see the patient at this time to provide further management and recommendations regarding the coagulopathy as she had also been on Eliquis at home, last dose unknown. I have been in contact overnight since yesterday with hospitalist and provided my input prior to the consultation. PAST MEDICAL HISTORY: ALLERGIES: NONE MENTIONED. MEDICATIONS: Eliquis. The family has no other list of home medicines at this time. MEDICAL ILLNESS: There is a history of atrial fibrillation, hypertension, and Crohn's disease on Humira in the past. She has degenerative joint disease and has undergone hip surgeries and a total hip replacement. She has a history of COPD and was on oxygen at home at the time of this hemorrhagic event. SOCIAL HISTORY: The patient has been a heavy smoker in the past and quit prior to the cholecystectomy. She has no history of alcohol or drug abuse. FAMILY HISTORY: Noncontributory. REVIEW OF SYSTEMS: Unobtainable as the patient is sedated and unresponsive on a respirator. PHYSICAL EXAMINATION: VITAL SIGNS: Pulse 110 and regular, blood pressure 122/60, respiratory rate 35- 40, and temperature 99.3. GENERAL: She is unresponsive on a respirator, breathing rapidly. She does not respond meaningfully. HEENT: Pupils are in midposition and equal, poorly responsive to light bilaterally. LUNGS: Scattered rhonchi throughout. CARDIOVASCULAR: Regular rate and rhythm without murmur, rub, gallop, or click. ABDOMEN: No definite tenderness, mass, or organomegaly. EXTREMITIES: No clubbing, cyanosis. SKIN: There are some scattered hemorrhages and bruises. LYMPH: No adenopathy. MUSCULOSKELETAL: No active arthritis. NEUROLOGICAL: No focal findings. LABORATORY DATA: Most recent CBC shows a white blood cell count of 28.3, hemoglobin 8.7, and platelet count 64,000. Chemistry shows sodium 151, potassium 3.6, chloride 124, and carbon dioxide 18. The creatinine is 2.95. The albumin is 2.2 and calcium 5.8. Magnesium is 0.9. Bilirubin is normal, but AST and ALT are 509 and 141, respectively. IMAGING STUDIES: A chest x-ray shows a possible consolidation in the lingula. On July 01, the CT scan of the chest, abdomen, and pelvis showed patchy bilateral airspace consolidation with no mass. There is a COPD type change. No adenopathy is noted. There is some colonic cyst distention which is nonspecific. IMPRESSION: 1. Acute gastrointestinal bleed with hemorrhagic shock presumably secondary to a gastric ulcer. 2. Coagulopathy, which is multifactorial secondary to Eliquis, massive gastrointestinal blood loss and, possibly, a component of hypocalcemia. 3. Hypoxic respiratory failure with possible brain injury. 4. Nonspecific hypodensities in the posterior fossa and right frontal lobe on CT scan. 5. Acute renal failure. 6. Shock liver. RECOMMENDATIONS: I discussed management of the coagulopathy with the hospitalist at some length. The patient yesterday until now has received 3 units of FFP, platelets, and 4 units of packed red blood cells as well as Kcentra with definite improvement in coagulation status. The INR is now 1.8, and the hemoglobin is stable. She is hemodynamically stable and off pressors. An upper gastrointestinal endoscopy did confirm a gastric ulcer, treated endoscopically, which is the presumed source of the massive upper gastrointestinal bleed, aggravated by the coagulopathy. At this point, I would monitor platelet count and give platelets for platelet count under 50, 000. I do not think additional intervention such as antifibrinolytic agents or the antidote to Eliquis is going to be necessary. Unfortunately, her prognosis is poor given the prolonged hypotension. Thanks very much for allowing me to provide more recommendations. We will follow with you as needed. Job ID: [id number] MTDD
[2019-07-03 04:03] LABS: Anion Gap 15 mmol/L (10-20); BUN (Urea Nitrogen) 53 mg/dL (9.8-20.1); Calc. Creatinine Clearance 17 mL/min (70-130); Carbon Dioxide 16 mmol/L (22-29); Chloride 116 mmol/L (98-107); Estimated GFR-MDRD 12; Glucose 122 mg/dL (70-105); Potassium 3.4 mmol/L (3.5-5.1); Sodium 144 mmol/L (136-145)
[2019-07-03 04:05] LABS: Calcium 5.7 mg/dL (7.8-10.44)
[2019-07-03 04:09] LABS: Band 16 % (5-11); Hemoglobin 8.5 g/dL (12.0-16.0); Hypochromia SLIGHT = 6-15 cells (100X) (0-5/hpf); Lymphocytes 3 % (21-51); MDiff Complete? YES; Mean Corpuscular HGB CONC 33.5 g/dL (32.0-36.0); Mean Corpuscular Hemoglobin 28.6 pg (27.0-31.0); Mean Corpuscular Volume 85.4 fL (78.0-98.0); Mean Platelet Volume 10.9 fL (7.4-10.4); Monocytes 6 % (0-10); Neutrophil 75 % (42-75); Platelet Count 56 thou/uL (130-400); Platelet Morphology Comment Appears Decreased; Red Blood Cell (RBC) Count 2.99 mill/uL (4.20-5.40); White Blood Cell (WBC) Count 31.1 thou/uL (4.8-10.8)
[2019-07-03] MEDS: Sodium Bicarbonate 50 MEQ in Dextrose 5% in Water 1,000 ML IV SCH ×2 (04:38→17:07)
[2019-07-03] MEDS ORDERED: Calcium Gluconate 4.6 MEQ in Sodium Chloride 0.9% 100 ML IVPB SCH (04:45)
[2019-07-03] MEDS: ADMIXTURE FEE IVPB SCH ×2 (05:22→18:12)
[2019-07-03] MEDS: Propofol 1,000 MG/100 ML VIAL IV PRN ×2 (05:22→15:55)
[2019-07-03] MEDS: PANTOPRAZOLE IVPB SCH ×2 (05:22→18:12)
[2019-07-03] MEDS: Hydrocortisone Sod Succ/PF 100 mg/2 ml Vial IVP SCH ×3 (05:22→18:11)
[2019-07-03] MEDS: DEXTROSE IVPB SCH ×2 (05:22→18:12)
[2019-07-03] MEDS: WATER IVPB SCH ×2 (05:22→18:12)
[2019-07-03] MEDS: Meropenem 500 MG in Sodium Chloride 0.9% 100 ML IVPB SCH ×2 (05:23→18:11)
[2019-07-03] MEDS: Morphine 2 MG/ML SYRINGE SLOW IVP PRN (06:33)
[2019-07-03 07:22] LABS: Actual Bicarbonate (HCO3a) 15.1 mEq/L (22-28); Base Excess (BEa) -7.7 mEq/L (-2.0 to +3.0); Calcium, Ionized 0.89 mmol/L (1.12-1.30); Carboxyhemoglobin (COHb) 0.8 gm% (0.0-3.0); Hemoglobin (Hb) 8.3 g/dL (12.0-16.0); O2 Tension (PaO2) 105.1 mmHg (80.0-100.0); Potassium - ABG Lab 3.36 mmol/L (3.70-5.30); pH, Arterial 7.45 (7.35-7.45)
[2019-07-03 07:24] LABS: CO2 Tension 22.4 mmHg (35.0-45.0)
[2019-07-03 07:25] LABS: Puncture Site RR
--- NOTE | 2019-07-03 07:56 | CON ---
DATE OF CONSULTATION: HISTORY OF PRESENT ILLNESS: Carlee Weir is a 59-year-old female from [facility]. History is obtained by talking to who is at the bedside. She is apparently sick during the New Year's Luisa, cough from cold, was taken to a hospital in [place]. While in the hospital, they were told she had an acute cholecystitis as well as SVT. She then after her URI bronchitis, flu improved, she had her gallbladder taken out. She was discharged home on Eliquis 5 mg a day, fluconazole 200 a day, lisinopril 10 a day, Prozac 60 a day, Protonix 40 a day, doxycycline 100, bumetanide 0.5, Ativan 0.5, methylprednisolone 4 mg, lisinopril 20 mg, and pregabalin. is unsure what she took or what she did not take. She has been home since Wednesday, today is Wednesday, 5 days ago, and was taken the Eliquis yesterday, she had some black stools. Today, she was vomiting and had both bloody stools and hematemesis. She was life-flighted after she presented to [place] in multiorgan failure, coagulopathy, and shock. She has been seen by GI locally. They admitted her to the ICU. PAST MEDICAL HISTORY: According to is mainly pertinent for recent diagnosis of cardiac arrhythmias, longstanding history of tobacco abuse, COPD, though she is very active. History of arthritis, history of anxiety, history of hypertension, history of depression. PAST SURGICAL HISTORY: Multiple bones including ankle and wrist fractures. ALLERGIES: APPARENTLY, KEFLEX. UNCLEAR WHAT THE REACTION IS. PHYSICAL EXAMINATION: GENERAL: She is in the ICU, intubated, sedated on propofol. VITAL SIGNS: Blood pressure is 140/80, pulse 115, respirations 34, saturation 96%. CHEST: Decreased breath sounds, rhonchi, crackles. CARDIAC: SVT. ABDOMEN: Distended, soft. EXTREMITIES: Trace edema, swelling. LABORATORY DATA: X-ray showed bilateral infiltrates. White count 76913, H and H 7 and 23, platelet count is 120, slight left shift. INR is 4, PT is 38. PO2 is 46, pCO2 is 30, pH of 7.08. Sodium is 153, creatinine is 1.86. AST and ALT elevated at [address] abdomen pelvis did not show any acute abdominal process. Findings mainly multifocal pneumonia, colon distention. IMPRESSION: 1. Multiorgan failure rule out sepsis. 2. Pneumonia. 3. Renal failure. 4. Chronic obstructive pulmonary disease. 5. Supraventricular tachycardia. 6. Arthritis. PLAN: Antibiotics are being adjusted, bicarb drip will be initiated. Lab is being ordered. She needs a fresh frozen plasma, vitamin K. Transfusion as needed. Prognosis is grave. Hematology being consulted. This is a 1-hour critical time. Job ID: [id number]
[2019-07-03] MEDS ORDERED: Calcium Chloride 1 GM/10 ML Abboject SYRINGE IVP SCH (08:15)
--- NOTE | 2019-07-03 08:35 | RAD ---
CHEST 1 VIEW: Date: 07/03/2019 HISTORY: Respiratory insufficiency. FINDINGS: The NG tube appears to have been pulled back fairly significantly with the tip now just at the GE darrell ction region with the side hole into the esophagus. This might be more optimally positioned by herminio urrutia. Some progressive bilateral alveolar nodular parenchymal changes concerning for the possibility of pneumonia. Endotracheal tube and right central line in place. IMPRESSION: The NG tube has been pulled back somewhat with the tip just at the GE junction region. Patchy alveola r nodular parenchymal changes bilaterally showing worsening when compared to the prior study, which m ay well represent some worsening pneumonia. Continue short-term follow-up. POS: TPC
--- NOTE | 2019-07-03 08:39 | PRG ---
DATE OF SERVICE: 07/03/2019 SUBJECTIVE: Carlee Weir remains in the ICU, tachypneic and tachycardic. OBJECTIVE: VITAL SIGNS: Pulse of 113, respiratory rate 38, saturations 100%, blood pressure 134/67. HEENT: Pretty much encephalopathic. Pupils are dilated. CHEST: Extensive rhonchi, crackles. CARDIAC: Sinus tach. ABDOMEN: Soft. X-ray shows bilateral infiltrates. LABORATORY DATA: Creatinine 3.8, [place] 53[place] [id number]. H and H of 8 and 25. Platelet count is low at 56. I's and O's have been consistently ahead. All cultures so far negative. She had a CT done of the head yesterday which shows multiple embolic episode. IMPRESSION: 1. Coagulopathy, probably disseminated intravascular coagulation. The etiology unclear. 2. Multiple embolic episodes. I think gastric bleed. 3. Respiratory failure, pneumonia baseline, apparently chronic obstructive pulmonary disease, renal failure, shock liver. PLAN: 1. At this stage, we are going to continue steroids, supportive care. 2. Broad-spectrum antibiotics, adjusted for renal failure. It appears the coagulopathy has improved. 3. But overall prognosis is grave considering multiorgan failure as well as multiple [employer] emboli. 4. We will follow. She is to be made a DNR. One-half hour of critical time. Job ID: [id number]
[2019-07-03 09:57] LABS: INR-International Normal Ratio 1.4; PTT 31.3 SEC (22.9-36.1); Prothrombin Time 17.4 SEC (12.0-14.7)
[2019-07-03 10:08] LABS: Anion Gap 15 mmol/L (10-20); BUN (Urea Nitrogen) 57 mg/dL (9.8-20.1); Calc. Creatinine Clearance 16 mL/min (70-130); Carbon Dioxide 17 mmol/L (22-29); Chloride 114 mmol/L (98-107); Estimated GFR-MDRD 11; Glucose 123 mg/dL (70-105); Potassium 3.5 mmol/L (3.5-5.1); Sodium 142 mmol/L (136-145)
[2019-07-03 10:18] LABS: Calcium 5.8 mg/dL (7.8-10.44)
[2019-07-03] MEDS: Linezolid 600 MG in Premix Bag 1 BAG IVPB SCH ×2 (10:28→21:06)
[2019-07-03 10:44] LABS: Band 9 % (5-11); Basophilic Stippling SLIGHT = 1-2 cells (100X) (None Seen); Burr Cells SLIGHT = 2-5 cells (100X) (0-1/hpf); Hemoglobin 8.2 g/dL (12.0-16.0); Lymphocytes 6 % (21-51); MDiff Complete? YES; Mean Corpuscular HGB CONC 34.7 g/dL (32.0-36.0); Mean Corpuscular Hemoglobin 29.9 pg (27.0-31.0); Mean Corpuscular Volume 86.2 fL (78.0-98.0); Mean Platelet Volume 7.4 fL (7.4-10.4); Monocytes 1 % (0-10); Neutrophil 84 % (42-75); Ovalocytes MODERATE= 6-15 cells (100X) (0-1/hpf); Platelet Count 53 thou/uL (130-400); Platelet Morphology Comment Appears Decreased; Polychromasia SLIGHT = 2-3 cells (100X) (0-2/hpf); RBC Distribution Width 15.2 % (11.5-14.5); Red Blood Cell (RBC) Count 2.76 mill/uL (4.20-5.40); White Blood Cell (WBC) Count 30.6 thou/uL (4.8-10.8)
--- NOTE | 2019-07-03 12:41 | PDOC.HOSPP ---
- Subjective Encounter Date: 07/03/19 Encounter Time: 10:45 Subjective: on vent, obtunded has gag reflux and is tachypneic and son at bedside - Objective Vital Signs & Weight: Vital Signs (12 hours) Pulse Resp BP 07/03/19 10:47 96 163/94 H 07/03/19 07:59 117 H 134/97 H 07/03/19 06:00 41 H 07/03/19 05:01 112 H 167/119 H 07/03/19 04:00 43 H 07/03/19 02:00 44 H 07/03/19 01:00 105 H Weight Weight 158 lb 8.198 oz Most Recent Monitor Data Heart Rate from ECG 115 NIBP 172/118 NIBP BP-Mean 136 Respiration from ECG 39 SpO2 100 I&O: 07/02/19 07/03/19 07/04/19 06:59 06:59 06:59 Intake Total 3851 4892.6 Output Total 502 600 Balance 3349 4292.6 Result Diagrams: 07/03/19 09:30 07/03/19 09:30 Additional Labs: Accuchecks 07/02/19 22:19 POC Glucose 145 H Hospitalist ROS - Medication Medications: Active Medications Generic Name Dose Route Start Last Admin Trade Name Freq PRN Reason Stop Dose Admin Hydrocortisone Sodium Succinate 50 mg 07/01/19 23:59 07/03/19 05:22 Solu-Cortef IVP 07/08/19 23:59 50 mg Q6HR [place] Administration Linezolid 600 mg/ Device 300 mls @ 150 mls/hr 07/01/19 21:00 07/03/19 10:28 IVPB 300 mls Q12HR [place] Administration Pantoprazole Sodium 80 mg/ 100 mls @ 10 mls/hr 07/02/19 09:15 07/03/19 05:22 Miscellaneous Medication 1 IVPB 100 mls each/ Dextrose/Water INF [place] Administration Sodium Bicarbonate 50 meq/ 1,050 mls @ 100 mls/hr 07/02/19 18:30 07/03/19 04: 38 Dextrose/Water IV 1,050 mls INF [place] Administration Lorazepam 2 mg 07/01/19 17:49 07/02/19 03:08 Ativan SLOW IVP 07/31/19 17:49 2 mg Q1H PRN Administration Breakthrough agitation Morphine Sulfate 2 mg 07/01/19 17:49 07/03/19 06:33 Morphine SLOW IVP 07/31/19 17:49 2 mg Q1H PRN Administration BREAKTHROUGH PAIN/Agitation Propofol 1,000 mg 07/01/19 17:49 07/03/19 05:22 Diprivan IV 07/31/19 17:49 1,000 mg INF PRN Administration TO ACHIEVE GOAL RASS Protocol Sodium Chloride 10 ml 07/01/19 21:00 07/03/19 10:29 Flush - Normal Saline IVF 10 ml Q12HR [place] Administration - Exam General Appearance: ill appearing Eye: anicteric sclera Eye - other findings: 5mm pupil is fixed and dilated ENT: no oropharyngeal lesions, dry oral mucosa Neck: supple, no JVD Heart: RRR, no murmur Respiratory: no wheezes, no rales, rhonchi Gastrointestinal: soft, non-distended, normal bowel sounds Extremities: no cyanosis, 1+ LE edema Hosp A/P (1) Anoxic encephalopathy Status: Acute (2) s/p cardiac arrest Status: Acute (3) Acute respiratory failure with hypoxia Code(s): J96.01 - ACUTE RESPIRATORY FAILURE WITH HYPOXIA Status: Acute (4) Sepsis Code(s): A41.9 - SEPSIS, UNSPECIFIED ORGANISM Status: Acute Qualifiers: Sepsis type: sepsis due to unspecified organism Sepsis acute organ dysfunction status: with acute organ dysfunction Severe sepsis acute organ dysfunction type: acute respiratory failure Acute respiratory failure type: with hypoxia Severe sepsis shock status: unspecified Qualified Code(s): A41.9 - Sepsis, unspecified organism; R65.20 - Severe sepsis without septic shock; J96.01 - Acute respiratory failure with hypoxia (5) Acute renal failure Status: Acute Qualifiers: Acute renal failure type: unspecified Qualified Code(s): N17.9 - Acute kidney failure, unspecified (6) Metabolic acidosis Code(s): E87.2 - ACIDOSIS Status: Acute (7) Acute blood loss anemia Code(s): D62 - ACUTE POSTHEMORRHAGIC ANEMIA Status: Acute (8) GI bleed Code(s): K92.2 - GASTROINTESTINAL HEMORRHAGE, UNSPECIFIED Status: Acute Qualifiers: GI bleed type/associated pathology: gastric ulcer Qualified Code(s): K25.4 - Chronic or unspecified gastric ulcer with hemorrhage (9) PUD (peptic ulcer disease) Code(s): K27.9 - PEPTIC ULC, SITE UNSP, UNSP AC OR CHR, W/O HEMOR OR PERF Status: Acute (10) Afib Code(s): I48.91 - UNSPECIFIED ATRIAL FIBRILLATION Status: Chronic Qualifiers: Atrial fibrillation type: paroxysmal Qualified Code(s): I48.0 - Paroxysmal atrial fibrillation (11) H/O Crohn's disease Code(s): Z87.19 - PERSONAL HISTORY OF OTHER DISEASES OF THE DIGESTIVE SYSTEM Status: Chronic (12) DIC (disseminated intravascular coagulation) Code(s): D65 - DISSEMINATED INTRAVASCULAR COAGULATION Status: Acute (13) COPD (chronic obstructive pulmonary disease) Status: Suspected Qualifiers: COPD type: chronic bronchitis - Plan overall prognosis is very poor I have d/w at bedside is on zyvox, merrem and iv steroids neurology consultation to help family decide further course of action including hospice mentions he does not want her to suffer if she wont recover is DNAR has recieved total of 4 u prbc, 3 u ffp's and 1 platelet transfusions so far had approx 20 min cpr at home and then continued in ems and [facility] per
--- NOTE | 2019-07-03 15:30 | PDOC.PALCO ---
Palliative Care Consult - Consult Details Requesting Physician: Dr Khalil Reason for Consult: goals of care, advance directives assistance, assistance with communication prognosis/disease, family support Family Members Present: Patient Keo, Sister Shannan, two sons and daughter in law - Pertinent HPI 59 year old female who has had poor health with multiple morbidities. She resided at a private home with her . Patient was feeling poorly, had a bloody BM and fell to the floor as per the . He provided rescue breathing after he called EMS, and when they arrived they initiated CPR, intubated patient and she was transferred to the local hospital in [place] where she was airlifted to [facility]. Transfused and admitted to the CCU for further medical management. Guarded condition, neurology consult and EEG and MRI to be done this afternoon. - Social History Smoking Status: Smokes 11 or more cig/day Smoking: quit less than 1 year (Stopped smoking one month ago.) Alcohol Use: occasional Drug Use History: none Living Situation: - Medications MAR Reviewed: Yes - Allergies Allergies/Adverse Reactions: Allergies Allergy/AdvReac Type Severity Reaction Status Date / Time Cephalosporins Allergy Verified 07/01/19 15:18 - ROS Non Response: due to endotracheal tube, due to mental status - Objective Vital Signs: Vital Signs - Most Recent Temp Pulse Resp BP Pulse Ox 100.1 F H 106 H 41 H 135/94 H 100 07/03/19 00:00 07/03/19 15:14 07/03/19 06:00 07/03/19 15:14 07/02/19 19:11 Palliative Performance Scale: 20 - Physical Exam Constitutional: encephalitic, ill appearing, mild distress HEENT: moist MMs, sclera anicteric Respiratory: diminished lung sound (Mechanical ventilation) Cardiovascular: no significant murmur, diminished peripheral pulses Gastrointestinal: non-tender, incontinent Genitourinary: marin catheter Musculoskeletal: no cyanosis, no clubbing, edema present Skin: cap refill <2 seconds, no lesions, no rash Deviation from normal: encephalopathic - Problem List (1) Palliative care encounter Code(s): Z51.5 - ENCOUNTER FOR PALLIATIVE CARE Current Visit: Yes Status: Acute (2) Acute blood loss anemia Code(s): D62 - ACUTE POSTHEMORRHAGIC ANEMIA Current Visit: Yes Status: Acute (3) Acute respiratory failure with hypoxia Code(s): J96.01 - ACUTE RESPIRATORY FAILURE WITH HYPOXIA Current Visit: Yes Status: Acute (4) Anoxic encephalopathy Current Visit: Yes Status: Acute (5) GI bleed Code(s): K92.2 - GASTROINTESTINAL HEMORRHAGE, UNSPECIFIED Current Visit: Yes Status: Acute Qualifiers: GI bleed type/associated pathology: gastric ulcer Qualified Code(s): K25.4 - Chronic or unspecified gastric ulcer with hemorrhage (6) s/p cardiac arrest Current Visit: Yes Status: Acute (7) H/O Crohn's disease Code(s): Z87.19 - PERSONAL HISTORY OF OTHER DISEASES OF THE DIGESTIVE SYSTEM Current Visit: Yes Status: Chronic (8) COPD (chronic obstructive pulmonary disease) Current Visit: Yes Status: Suspected Qualifiers: COPD type: chronic bronchitis - Plan/Recommendations Plan: Met with the patient , two sons, daughter in law, sister, [id number]. They provided life review, Mrs Weir enjoyed doing things for her family, including cooking, baking, and finding the "perfect gift". Family also provided a review of her health history which is lengthy as she has had chronic conditions for a period of time including Crohns disease, recently become O2 dependent at home. also shared his experience finding his and performing rescue breathing. Family state she would not want a PEG or TRACH. MRI and EEG to be done with a neuro consult. Family will wait for results, but believe that they desire to seek comfort measures. *Follow up 07/04 to revisit goals of care aggressive measures vs. comfort measures *Communicated with physicians in relation to family meeting and follow up 2019 *Reviewed medications, will make recommendations if comfort care is sought. *Palliative Care RN also following, please refer to further information in note section of chart. [75] minutes spent on this encounter with >50% of the time in counseling and coordination of care. Thank you for this very appropriate consult.
[2019-07-03 19:22] LABS: Hemoglobin 7.6 g/dL (12.0-16.0); Mean Corpuscular HGB CONC 34.6 g/dL (32.0-36.0); Mean Corpuscular Hemoglobin 29.4 pg (27.0-31.0); Mean Corpuscular Volume 85.1 fL (78.0-98.0); Platelet Count 41 thou/uL (130-400); RBC Distribution Width 15.2 % (11.5-14.5); Red Blood Cell (RBC) Count 2.57 mill/uL (4.20-5.40); White Blood Cell (WBC) Count 24.9 thou/uL (4.8-10.8)
[2019-07-03 19:42] LABS: Anisocytosis SLIGHT = 6-15 cells (100X) (0-5/hpf); Band 8 % (5-11); Basophilic Stippling SLIGHT = 1-2 cells (100X) (None Seen); Lymphocytes 4 % (21-51); MDiff Complete? YES; Metamyelocyte 1 % (0-0); Myelocyte 1 % (0-0); Neutrophil 86 % (42-75); Nucleated RBC 1 % (0); Ovalocytes SLIGHT = 2-5 cells (100X) (0-1/hpf); Platelet Morphology Comment Appears Decreased; Polychromasia SLIGHT = 2-3 cells (100X) (0-2/hpf); Schistocytes SLIGHT = 2-5 cells (100X) (0-1/hpf); Spherocytes SLIGHT = 1-5 cells (100X) (None Seen)
[2019-07-03 19:48] LABS: Anion Gap 14 mmol/L (10-20); BUN (Urea Nitrogen) 60 mg/dL (9.8-20.1); Calc. Creatinine Clearance 15 mL/min (70-130); Carbon Dioxide 17 mmol/L (22-29); Chloride 111 mmol/L (98-107); Estimated GFR-MDRD 10; Glucose 119 mg/dL (70-105); Potassium 3.4 mmol/L (3.5-5.1); Sodium 139 mmol/L (136-145)
[2019-07-04] MEDS: Hydrocortisone Sod Succ/PF 100 mg/2 ml Vial IVP SCH ×3 (00:11→20:54)
[2019-07-04] MEDS: Propofol 1,000 MG/100 ML VIAL IV PRN (03:44)
[2019-07-04] MEDS: ADMIXTURE FEE IVPB SCH (03:45)
[2019-07-04] MEDS: PANTOPRAZOLE IVPB SCH (03:45)
[2019-07-04] MEDS: WATER IVPB SCH (03:45)
[2019-07-04] MEDS: DEXTROSE IVPB SCH (03:45)
[2019-07-04] MEDS: Sodium Bicarbonate 50 MEQ in Dextrose 5% in Water 1,000 ML IV SCH (03:45)
[2019-07-04 05:14] LABS: Anion Gap 14 mmol/L (10-20); BUN (Urea Nitrogen) 64 mg/dL (9.8-20.1); Calc. Creatinine Clearance 15 mL/min (70-130); Carbon Dioxide 19 mmol/L (22-29); Chloride 107 mmol/L (98-107); Estimated GFR-MDRD 9; Glucose 118 mg/dL (70-105); Potassium 3.4 mmol/L (3.5-5.1); Sodium 137 mmol/L (136-145)
[2019-07-04 05:18] LABS: Calcium 5.6 mg/dL (7.8-10.44)
[2019-07-04 05:23] LABS: Band 1 % (5-11); Hemoglobin 6.9 g/dL (12.0-16.0); Lymphocytes 9 % (21-51); MDiff Complete? YES; Mean Corpuscular HGB CONC 34.2 g/dL (32.0-36.0); Mean Corpuscular Hemoglobin 29.6 pg (27.0-31.0); Mean Corpuscular Volume 86.7 fL (78.0-98.0); Mean Platelet Volume 13.3 fL (7.4-10.4); Metamyelocyte 1 % (0-0); Monocytes 4 % (0-10); Myelocyte 1 % (0-0); Neutrophil 84 % (42-75); Platelet Count 37 thou/uL (130-400); Platelet Morphology Comment Appears Decreased; RBC Distribution Width 15.2 % (11.5-14.5); Red Blood Cell (RBC) Count 2.33 mill/uL (4.20-5.40); White Blood Cell (WBC) Count 24.4 thou/uL (4.8-10.8)
[2019-07-04 05:58] VITALS: BMI 31.7
[2019-07-04] MEDS ORDERED: Calcium Gluconate 4.6 MEQ in Sodium Chloride 0.9% 100 ML IVPB SCH (06:00)
[2019-07-04] MEDS: Meropenem 500 MG in Sodium Chloride 0.9% 100 ML IVPB SCH (06:03)
[2019-07-04] MEDS ORDERED: Calcium Chloride 13.6 MEQ in Sodium Chloride 0.9% 100 ML IVPB SCH (07:15)
--- NOTE | 2019-07-04 07:43 | RAD ---
EXAM: Single view of the chest HISTORY: Ventilated patient with respiratory failure COMPARISON: 07/03/2019 FINDINGS: Single view of the chest shows a normal sized cardiomediastinal silhouette. The lines and tubes are unchanged in position. The NG tube still needs to be completely advanced into the stomach. There is no evidence of consolidation, mass, or pleural effusion. Hardware seen in the righ t humerus. IMPRESSION: Stable exam. NG tube remains to be completely advanced into the stomach approximately 8 c m.
--- NOTE | 2019-07-04 09:14 | PRG ---
DATE OF SERVICE: 07/04/2019 SUBJECTIVE: This morning, she is unresponsive. She is on sedation. OBJECTIVE: VITAL SIGNS: Pulse 103, blood pressure 160/100, sats 100%, and temperature 98. HEENT: Eyes and nose are positive. Pupils are 4 mm. She is encephalopathic. CHEST: Decreased breath sounds. Minimal rhonchi. CARDIAC: Sinus tach. ABDOMEN: Soft. LABORATORY DATA: Creatinine is 4, BUN is 64, and glucose 144. DIAGNOSTIC DATA: X-ray shows bilateral infiltrates. The patient had an EEG ordered yesterday, which shows burst pattern. IMPRESSION: 1. Anoxic injury. 2. Multiple emboli. 3. Respiratory failure. 4. Sepsis syndrome. 5. Disseminated intravascular coagulation. 6. Renal failure. PLAN: Family is to decide extubation and comfort care, which I agree. Prognosis is grave. At this stage, comfort care. We will follow. TIME SPENT: One-half hour of critical time. Job ID: [id number] MTDD
--- NOTE | 2019-07-04 10:07 | PRG ---
DATE OF SERVICE: 07/03/2019 SERVICE: Nephrology. SUBJECTIVE: A 59-year-old female seen in followup for acute renal failure. as well as bleeding central line site . The patient is intubated. Neurology saw the patient earlier on that there is significant anoxic brain injury. OBJECTIVE: VITAL SIGNS: Temperature 100.1, pulse 111, respiratory rate 29, and SpO2 100% on the ventilator. GENERAL: Middle-aged female, in some respiratory distress . HEENT: Normocephalic, atraumatic. ET and OG tubes are in place. CARDIOVASCULAR: Tachycardic. Regular rhythm. CHEST/RESPIRATORY: ventilator transmitted . EXTREMITIES: Grossly normal looking . LABORATORY DATA: WBC 30.6, hemoglobin of 8.2, platelet of 53. Preop blood gas showed pH 7.45, pCO2 22.4, p02 105.1, BUN 7, creatinine 4.19. Glucose 123, calcium 5.8. 1.79 on admission from peak of 4.19 today. ASSESSMENT: 1. Acute renal failure . 2. DIC , status post PEA arrest . 3. Hypotension. 4. Metabolic acidosis. 5. . 6. injury. 7. Recent laparoscopic cholecystectomy. We will continue to monitor improvement of hemodynamics. The patient is anuric . Job ID: [id number]
--- NOTE | 2019-07-04 12:36 | PDOC.PALPN ---
Palliative Progress Note - Subjective Remains intubated, sedated. No purposeful movement. at bedside with his sister, sons in ICU waiting area. - Objective Vital Signs: Vital Signs - Most Recent Temp Pulse Resp BP Pulse Ox 98.9 F 105 H 23 H 172/101 H 100 07/04/19 04:00 07/04/19 11:10 07/04/19 08:00 07/04/19 11:10 07/04/19 07:49 - Physical Exam Constitutional: encephalitic, ill appearing HEENT: moist MMs Respiratory: diminished lung sound Deviation from normal: Adventicious lung sounds to upper lobes Cardiovascular: no significant murmur Gastrointestinal: soft Genitourinary: marin catheter Musculoskeletal: edema present Deviation from normal: no response to gentle stimuli Skin: fragile Deviation from normal: encephalopathic, sedated - Assessment (1) Palliative care encounter Code(s): Z51.5 - ENCOUNTER FOR PALLIATIVE CARE Current Visit: Yes Status: Acute (2) Acute blood loss anemia Code(s): D62 - ACUTE POSTHEMORRHAGIC ANEMIA Current Visit: Yes Status: Acute (3) Acute respiratory failure with hypoxia Code(s): J96.01 - ACUTE RESPIRATORY FAILURE WITH HYPOXIA Current Visit: Yes Status: Acute (4) Anoxic encephalopathy Current Visit: Yes Status: Acute (5) GI bleed Code(s): K92.2 - GASTROINTESTINAL HEMORRHAGE, UNSPECIFIED Current Visit: Yes Status: Acute Qualifiers: GI bleed type/associated pathology: gastric ulcer Qualified Code(s): K25.4 - Chronic or unspecified gastric ulcer with hemorrhage (6) s/p cardiac arrest Current Visit: Yes Status: Acute (7) H/O Crohn's disease Code(s): Z87.19 - PERSONAL HISTORY OF OTHER DISEASES OF THE DIGESTIVE SYSTEM Current Visit: Yes Status: Chronic (8) COPD (chronic obstructive pulmonary disease) Current Visit: Yes Status: Suspected Qualifiers: COPD type: chronic bronchitis - Plan Plan: Continue with lengthy conversations with family in relation to current health condition with poor chance of meaningful recovery. Family has decided to compassionately extubate today after other family arrive from out of town. Revisited what a compassionate extubation looks like, and allowed time for questions. Asked the family what is important to them in relation to this time as they extubate Mrs Weir. Theraputic listening and emotional support. Communicated with spiritual care and RN for palliative care. Physicians aware of family wishes [60] minutes spent on this encounter with >50% of the time in counseling and coordination of care. - ROS Non Response: due to endotracheal tube, due to mental status
[2019-07-04] MEDS ORDERED: Lorazepam 2 MG/ML VIAL SLOW IVP PRN (13:01)
[2019-07-04] MEDS: Morphine 4 MG/ML VIAL SLOW IVP PRN ×3 (13:25→23:17)
--- NOTE | 2019-07-04 13:57 | PRG ---
DATE OF SERVICE: 07/03/2019 SUBJECTIVE: Ms. Weir, no bleeding overnight. She had an EEG, the family is waiting with the results with neurologist. OBJECTIVE: VITAL SIGNS: Pulse is 99 to 120, blood pressure 149/94, temperature 100 to 100.8. HEENT: She is nonresponsive. Pupils were responsive, however. White count 24,000, hemoglobin 7.6, platelet count 86,000, INR 1.4. Sodium 139, potassium 4, BUN and creatinine are 60 and 4.5. ASSESSMENT: 1. Status post cardiopulmonary arrest. 2. Gastrointestinal bleed. 3. CT of the brain concerning for embolic phenomenon. 4. Nurse reports the EEG had shown burst suppression and there is going to be discussion with Neurology later today about prognosis. 5. Gastrointestinal bleeding at this time. There are no overt signs of gastrointestinal bleeding. DIC seems to be improved. We would continue PPI therapy. At this point in time from GI standpoint, we will sign off. We will follow from a distance. If I can be of further assistance in her care, please do not hesitate to contact me. Job ID: [id number]
--- NOTE | 2019-07-04 14:43 | PDOC.HOSPP ---
- Subjective Encounter Date: 07/04/19 Encounter Time: 12:00 Subjective: obtunded on vent and son at bedside - Objective Vital Signs & Weight: Vital Signs (12 hours) Temp Pulse Resp BP Pulse Ox 07/04/19 11:10 105 H 172/101 H 07/04/19 08:00 23 H 07/04/19 07:49 100 07/04/19 07:20 103 H 161/100 H 07/04/19 06:00 24 H 07/04/19 04:00 98.9 F 26 H Weight Admit Weight 158 lb Weight 162 lb 11.218 oz Most Recent Monitor Data Heart Rate from ECG 110 NIBP 175/101 NIBP BP-Mean 125 Respiration from ECG 20 SpO2 100 I&O: 07/03/19 07/04/19 07/05/19 06:59 06:59 06:59 Intake Total 4892.6 3868.1 Output Total 600 1052 0 Balance 4292.6 2816.1 0 Result Diagrams: 07/04/19 03:50 07/04/19 03:50 Additional Labs: Accuchecks 07/04/19 07/03/19 07/03/19 03:56 22:04 18:53 POC Glucose 145 H 159 H 145 H Hospitalist ROS - Medication Medications: Active Medications Generic Name Dose Route Start Last Admin Trade Name Freq PRN Reason Stop Dose Admin Hydrocortisone Sodium Succinate 50 mg 07/01/19 23:59 07/04/19 05:35 Solu-Cortef IVP 07/08/19 23:59 50 mg Q6HR [place] Administration Linezolid 600 mg/ Device 300 mls @ 150 mls/hr 07/01/19 21:00 07/03/19 21:06 IVPB 300 mls Q12HR [place] Administration Pantoprazole Sodium 80 mg/ 100 mls @ 10 mls/hr 07/02/19 09:15 07/04/19 03:45 Miscellaneous Medication 1 IVPB 100 mls each/ Dextrose/Water INF [place] Administration Sodium Bicarbonate 50 meq/ 1,050 mls @ 100 mls/hr 07/02/19 18:30 07/04/19 03: 45 Dextrose/Water IV 1,050 mls INF [place] Administration Meropenem 500 mg/ Sodium 100 mls @ 200 mls/hr 07/03/19 18:00 07/04/19 06:03 Chloride IVPB 100 mls 0600,1800 [place] Administration Lorazepam 2 mg 07/01/19 17:49 07/02/19 03:08 Ativan SLOW IVP 07/31/19 17:49 2 mg Q1H PRN Administration Breakthrough agitation Lorazepam 2 mg 07/04/19 13:01 07/04/19 13:55 Ativan SLOW IVP 2 mg Q1H PRN Administration .AIR HUNGER Morphine Sulfate 2 mg 07/01/19 17:49 07/03/19 06:33 Morphine SLOW IVP 07/31/19 17:49 2 mg Q1H PRN Administration BREAKTHROUGH PAIN/Agitation Morphine Sulfate 4 mg 07/04/19 13:01 07/04/19 13:25 Morphine SLOW IVP 4 mg Q15MIN PRN Administration .COMFORT CARE Propofol 1,000 mg 07/01/19 17:49 07/04/19 03:44 Diprivan IV 07/31/19 17:49 1,000 mg INF PRN Administration TO ACHIEVE GOAL RASS Protocol Sodium Chloride 10 ml 07/01/19 21:00 07/03/19 21:06 Flush - Normal Saline IVF 10 ml Q12HR [place] Administration - Exam General Appearance: ill appearing Eye: PERRL, anicteric sclera ENT: no oropharyngeal lesions, dry oral mucosa Neck: supple, no JVD Heart: RRR, no murmur Respiratory: no wheezes, rales Gastrointestinal: soft, non-distended, normal bowel sounds Extremities: no cyanosis, 1+ LE edema Neurological - other findings: no spontaneous movement of any extemities, obtunded, no reflexes Hosp A/P (1) Anoxic encephalopathy Status: Acute (2) s/p cardiac arrest Status: Acute (3) Acute respiratory failure with hypoxia Code(s): J96.01 - ACUTE RESPIRATORY FAILURE WITH HYPOXIA Status: Acute (4) Sepsis Code(s): A41.9 - SEPSIS, UNSPECIFIED ORGANISM Status: Acute Qualifiers: Sepsis type: sepsis due to unspecified organism Sepsis acute organ dysfunction status: with acute organ dysfunction Severe sepsis acute organ dysfunction type: acute respiratory failure Acute respiratory failure type: with hypoxia Severe sepsis shock status: unspecified Qualified Code(s): A41.9 - Sepsis, unspecified organism; R65.20 - Severe sepsis without septic shock; J96.01 - Acute respiratory failure with hypoxia (5) Acute renal failure Status: Acute Qualifiers: Acute renal failure type: unspecified Qualified Code(s): N17.9 - Acute kidney failure, unspecified (6) Metabolic acidosis Code(s): E87.2 - ACIDOSIS Status: Acute (7) Acute blood loss anemia Code(s): D62 - ACUTE POSTHEMORRHAGIC ANEMIA Status: Acute (8) GI bleed Code(s): K92.2 - GASTROINTESTINAL HEMORRHAGE, UNSPECIFIED Status: Acute Qualifiers: GI bleed type/associated pathology: gastric ulcer Qualified Code(s): K25.4 - Chronic or unspecified gastric ulcer with hemorrhage (9) PUD (peptic ulcer disease) Code(s): K27.9 - PEPTIC ULC, SITE UNSP, UNSP AC OR CHR, W/O HEMOR OR PERF Status: Acute (10) Afib Code(s): I48.91 - UNSPECIFIED ATRIAL FIBRILLATION Status: Chronic Qualifiers: Atrial fibrillation type: paroxysmal Qualified Code(s): I48.0 - Paroxysmal atrial fibrillation (11) H/O Crohn's disease Code(s): Z87.19 - PERSONAL HISTORY OF OTHER DISEASES OF THE DIGESTIVE SYSTEM Status: Chronic (12) DIC (disseminated intravascular coagulation) Code(s): D65 - DISSEMINATED INTRAVASCULAR COAGULATION Status: Acute (13) COPD (chronic obstructive pulmonary disease) Status: Suspected Qualifiers: COPD type: chronic bronchitis - Plan overall prognosis is very poor, family is aware I have d/w at bedside, are going for compassionate extubation this noon staff will get Samir tylerest to pray prior to extubation no further transfusion, I have d/w and he does not want any active measures now. is on zyvox, merrem and iv steroids has d/w and family about abnormal eeg findings s/o anoxic injury to brain. has recieved total of 4 u prbc, 3 u ffp's and 1 platelet transfusions so far had approx 20 min cpr at home and then continued in [facility] and [facility] per
[2019-07-04] MEDS: Linezolid 600 MG in Premix Bag 1 BAG IVPB SCH (20:54)
[2019-07-04] MEDS ORDERED: Scopolamine 1.5 mg/72 hour Patch TD SCH ×2 (23:00)
--- NOTE | 2019-07-04 23:29 | CON ---
DATE OF CONSULTATION: 07/04/2019 CONSULTING PHYSICIAN: Hospitalist Service. IMPRESSION: Anoxic brain injury with a burst suppression pattern consistent with a very poor prognosis. PLAN: Family has undertaken comfort measures and hospice care for the finality of her life. HISTORY OF PRESENT ILLNESS: Ms. Weir is a 59-year-old woman who had a recent history of some GI problems. She was placed on anticoagulation due to cardiac issues. She apparently had some internal bleeding which resulted in drop in her hemoglobin to a level of 4. She had cardiopulmonary arrest that took 20 minutes for resuscitation to revive her. She was transferred here and was intubated. She had an EEG done yesterday, which showed a burst suppression pattern. She had a CT of the brain which showed bilateral areas of cerebellar acute infarction. She is in renal failure with elevated BUN and creatinine. Her echocardiogram showed a normal ejection fraction of 65% to 70%. Discussed the situation yesterday evening and the family elected to stop life support today. She has had some brief apnea, but is maintaining a rhythm. They are comfortable with the current game plan. PAST MEDICAL HISTORY: As listed. ALLERGIES: CEPHALOSPORINS. SOCIAL HISTORY: Unremarkable. FAMILY HISTORY: Unremarkable. REVIEW OF SYSTEMS: Not obtainable. PHYSICAL EXAMINATION: GENERAL: She is a well-nourished middle-aged woman, lying in bed with agonal respirations. HEENT: Pupils nonreactive. Eyes are midposition. Face appears symmetric. VITAL SIGNS: Pulse rate is 130, respirations 34. No abnormal movements were seen. SUMMARY: Unfortunate situation with this subsequent arrest in a middle-aged woman and severe anoxic brain damage. I agree with families plans of care. Job ID: [id number]
[2019-07-04 23:32] VITALS: BP 110/65; TEMP 100.6
[2019-07-05] MEDS: Morphine 4 MG/ML VIAL SLOW IVP PRN ×2 (01:43→02:18)
--- NOTE | 2019-07-05 08:45 | DIS ---
DATE OF ADMISSION: 07/01/2019 DATE OF DISCHARGE: 07/05/2019 DATE OF : 07/05/2019. TIME OF : 3:43 a.m. PRIMARY CAUSES OF : Multiple organ failures from last 4 days, anoxic brain injury due to prolonged CPR from 4 days, status post cardiac arrest 4 days, acute blood loss anemia with gastric ulcer 4 days. SECONDARY CAUSES OF : DIC, acute respiratory failure, acute renal failure, sepsis. BRIEF COURSE DURING HOSPITALIZATION: The patient syncopized at home and collapsed after having a bloody bowel movement. CPR was initiated by and EMS arrived. Continued CPR for another 20 minutes and was intubated in the field. She was taken to [facility], where she was found to have had hemoglobin of 4.2 g. She was given 2 units of packed cell transfusion and transferred to [facility]. She has had significant history of having had cholecystectomy on June 22, 2019 at [facility]. During the same hospitalization, the patient was found to be in atrial fibrillation and was initiated on Eliquis at the time of discharge. She was also on home oxygen at the time of discharge from there. On arrival here, the patient's pupil was dilated, although was reacting minimally. She was completely obtunded and was unresponsive. She had multiple organ failures on admission here. She was evaluated by Dr. Mcdonald for Gastroenterology and Dr. Hampton for Pulmonology and Dr. Sara Negron for Nephrology. She has had a total of 4 units of packed cell, 3 units of FFP, Kcentra, and 1 unit of leukocyte reduced platelets in addition to 2 units of packed cell she received by EMS. The patient continued to be encephalopathic due to likely anoxic brain injury from prolonged CPR. She has had upper endoscopy done and was found to have had 5 mm ulcer with visible vessel and actively oozing with a clot around the pylorus and duodenum. This was treated with epinephrine and cautery with 2 hemoclips with cessation of bleeding. The patient was in DIC on arrival. Her white count was also elevated at 45. Her initial bicarb was less than 8. Blood gas showed a pH of 7.0 on arrival here. Her creatinine jaqueline up from 1.79 to 4.71. The patient's INR was 2.9 with PTT of 50.4 on admission. Her INR stabilized to 1.4 on 13th. The patient's H/H jaqueline up to 8.8 and 25 after resuscitation with multiple blood products. Despite all measures, the patient continued to be encephalopathic. She has had consultation with Dr. Wang for Neurology. She has had EEG done, which showed burst suppression pattern consistent with anoxic brain injury and very poor prognosis. did not want any further measures due to poor prognosis and meaningful recovery. The family went in for compassionate extubation. This was done around 1:10 p.m. on the . The patient was later transferred to Oncology Unit for comfort care. She breathed her last on the 05 of July at 3:43 a.m. The family and home were notified according to hospital protocol. Job ID: [id number] MTDD
--- NOTE | 2019-07-06 13:21 | EEG ---
Referring Physician: Bobby CRAWLEY EEG # [id number] TEST TYPE: ROUTINE PORTABLE INPATIENT REPORT: AN EEG USING THE [employer]NATIONAL TEN-TWENTY SYSTEM OF ELECTRODE PLACEMENT WAS PERFORMED. The background activity consists of a burst-suppression pattern. This remained constant throughout the study. Photic stimulation was unremarkable. No normal background activity was seen during the study. IMPRESSION: THIS IS AN ABNORMAL STUDY FOR THE FINDINGS OF A BURST-SUPPRESSION PATTERN WHICH CARRIES A VERY POOR PROGNOSIS FOR CLINICAL RECOVERY. Manager Of Operations: HERRERA Bulk Pigment Reducer: EEG.PREET RODNEY
--- NOTE | 2019-07-08 10:56 | EKG ---
Test Reason : Blood Pressure : / mmHG Vent. Rate : 095 BPM Atrial Rate : 095 BPM P-R Int : 162 ms QRS Dur : 096 ms QT Int : 390 ms P-R-T Axes : 067 -22 154 degrees QTc Int : 490 ms Normal sinus rhythm Nonspecific T wave abnormality Prolonged QT Abnormal ECG Confirmed by DANIEL LIAO, VITA Morrison ([id number]), video effects editor YOGESH RIOS ([id number]) on 07/08/2019 10:56:30 AM Referred By: Confirmed By:VITA SANCHEZ MD
== END 2019-07-05 06:33 | disposition expired | DRG 871 ==
LOC: ERS 14:08 → CCU 17:39 → ONC 07-04 20:15
PROVIDERS: ADMIT Internal Medicine; ATTEND Internal Medicine
PROC: 30233N1 Transfusion of Nonautologous Red Blood Cells into Peripheral Vein, Percutaneous Approach (ICD-10-PCS; principal; 2019-07-01)
PROC: 3E033XZ Introduction of Vasopressor into Peripheral Vein, Percutaneous Approach (ICD-10-PCS; 2019-07-01)
PROC: 30233K1 Transfusion of Nonautologous Frozen Plasma into Peripheral Vein, Percutaneous Approach (ICD-10-PCS; 2019-07-01)
PROC: 30233R1 Transfusion of Nonautologous Platelets into Peripheral Vein, Percutaneous Approach (ICD-10-PCS; 2019-07-01)
PROC: 5A1945Z Respiratory Ventilation, 24-96 Consecutive Hours (ICD-10-PCS; 2019-07-01)
PROC: 0W3P8ZZ Control Bleeding in Gastrointestinal Tract, Via Natural or Artificial Opening Endoscopic (ICD-10-PCS; 2019-07-02)
DX: A41.9 Sepsis, unspecified organism (principal); K25.4 Chronic or unspecified gastric ulcer with hemorrhage; D65 Disseminated intravascular coagulation [defibrination syndrome]; J96.01 Acute respiratory failure with hypoxia; K72.00 Acute and subacute hepatic failure without coma; R40.2112 Coma scale, eyes open, never, at arrival to emergency department; R40.2312 Coma scale, best motor response, none, at arrival to emergency department; R40.2212 Coma scale, best verbal response, none, at arrival to emergency department; J18.9 Pneumonia, unspecified organism; G93.41 Metabolic encephalopathy; R65.21 Severe sepsis with septic shock; N17.9 Acute kidney failure, unspecified; G93.1 Anoxic brain damage, not elsewhere classified; D62 Acute posthemorrhagic anemia; K50.90 Crohn's disease, unspecified, without complications; E87.2 Acidosis; D68.9 Coagulation defect, unspecified; M62.82 Rhabdomyolysis; I47.1 Supraventricular tachycardia; D61.818 Other pancytopenia; J44.0 Chronic obstructive pulmonary disease with (acute) lower respiratory infection; E87.0 Hyperosmolality and hypernatremia; Z51.5 Encounter for palliative care; Z66 Do not resuscitate; I46.9 Cardiac arrest, cause unspecified; I95.9 Hypotension, unspecified; J44.9 Chronic obstructive pulmonary disease, unspecified; M19.90 Unspecified osteoarthritis, unspecified site; F41.9 Anxiety disorder, unspecified; E83.42 Hypomagnesemia; E87.6 Hypokalemia; F32.9 Major depressive disorder, single episode, unspecified; E83.51 Hypocalcemia; I10 Essential (primary) hypertension; E86.0 Dehydration; R57.8 Other shock; Z96.643 Presence of artificial hip joint, bilateral; Z90.49 Acquired absence of other specified parts of digestive tract; Z99.81 Dependence on supplemental oxygen; Z87.891 Personal history of nicotine dependence; Z79.01 Long term (current) use of anticoagulants
CPT/HCPCS: 36415; 36416; 36430; 36556; 51702; 70450; 71045; 71250; 74177; 80048; 80053; 82533; 82550; 82553; 82805; 83605; 83735; 84100; 84484; 85025; 85049; 85060; 85300; 85362; 85379; 85384; 85610; 85730; 86850; 86900; 86901; 87040; 93005; 93306; 94002; 94003; 94640; 94760; 95816; 95819; 96365; 96368; 96375; C9113; C9132; J0171; J0692; J1720; J2020; J2060; J2185; J2270; J2704; J3370; J3430; J3475; J3480; J3490; J7070; J7620; P9016; P9035; P9059